=== PATIENT | female | born 1945 | race Caucasian/White ===

== ENCOUNTER 2019-03-25 17:41 | Inpatient (IN) | payer MEDICARE, OTHER ==
--- NOTE | 2019-03-25 19:29 | ER Document Report ---
ED Medical Screen (RME) - General Chief Complaint: Hip Pain Stated Complaint: NECK PAIN Time Seen by Provider: 03/25/19 19:14 Notes: Patient is a 73-year-old female who presents to emergency department with a chief complaint of fall. Patient reports she was ambulating down her hallway when she fell. Patient reports when she moves with a very rapid pace or turns abruptly she becomes weak on her legs. Patient reports she is unsure of how she fell but since then has had left hip pain. Patient reports she has been using her wheelchair more frequently as she is unable to ambulate due to the pain. Patient did have 800 mg of ibuprofen that was administered by her family member about 4 hours ago. Patient was sent here for further evaluation. Patient denies any other injury during the fall. Patient denies use of blood thinners. Patient was sent over here from [facility] internal medicine after receiving a left hip x-ray that showed a displaced left femoral head fracture. - Related Data Allergies/Adverse Reactions: lisinopril Allergy (Severe, Verified 03/25/19 19:05) Swelling of hands and/or feet Past Medical History - Social History Chew tobacco use (# tins/day): No Frequency of alcohol use: Occasional Drug Abuse: None Physical Exam - Vital signs Vitals: Temp Pulse Resp BP Pulse Ox 97.9 F 77 20 145/59 H 98 03/25/19 18:29 03/25/19 18:29 03/25/19 18:29 03/25/19 18:29 03/25/19 18:29 - General General appearance: Appears well, Alert Course - Re-evaluation Re-evalutation: 03/25/19 19:28 Patient no acute distress. We will order a left hip x-ray. I have greeted and performed a rapid initial assessment of this patient. A comprehensive ED assessment and evaluation of the patient, analysis of test results and completion of the medical decision making process will be conducted by additional ED providers. - Vital Signs Vital signs: Temp Pulse Resp BP Pulse Ox 97.9 F 77 20 145/59 H 98 03/25/19 19:06 03/25/19 18:29 03/25/19 19:06 03/25/19 18:29 03/25/19 19:06
[2019-03-25] MEDS ORDERED: MORPHINE SULFATE 10 MG/ML INJ IV ONE (20:02)
[2019-03-25] MEDS ORDERED: ONDANSETRON HCL INJ/PF 4 MG/2 ML SDV IV ONE (20:03)
--- NOTE | 2019-03-25 20:05 | RADIOLOGY REPORT (SQ) ---
EXAM DESCRIPTION: HIP LEFT AP/LATERAL COMPLETED DATE/TIME: 03/25/2019 7:54 pm REASON FOR STUDY: left hip pain, fall COMPARISON: None. NUMBER OF VIEWS: Two views. TECHNIQUE: AP pelvis and and oblique frontal view of the left hip. LIMITATIONS: None. FINDINGS: Left femoral neck fracture with 4 cm impaction and minimal lateral displacement. No other fracture identified. OTHER: No other significant finding. IMPRESSION: Left femoral neck fracture with 4 cm impaction and minimal lateral displacement. TECHNICAL DOCUMENTATION: JOB ID: [id number] [place]-72 2010 [employer]- All Rights Reserved Reading location - IP/workstation name: [email or web address]
[2019-03-25 20:49] LABS: ABSOLUTE EOSINOPHILS # (AUTO) 0.1 10^3/uL (0.0-0.6); ABSOLUTE LYMPHOCYTES (AUTO) 1.6 10^3/uL (0.5-4.7); ABSOLUTE MONOCYTES (AUTO) 1.3 10^3/uL (0.1-1.4); ABSOLUTE NEUT (AUTO) 10.8 10^3/uL (1.7-8.2); BASOPHILS % (AUTO) 0.3 % (0-2); EOSINOPHILS % (AUTO) 0.6 % (0-6); HEMATOCRIT 33.2 % (36.0-47.0); HEMOGLOBIN 11.3 g/dL (12.0-15.5); LYMPHOCYTES % (AUTO) 11.4 % (13-45); MEAN CORPUSCULAR HGB CONC 33.9 g/dL (32.0-36.0); MEAN CORPUSCULAR VOLUME 89 fl (80-97); MONOCYTES % (AUTO) 9.3 % (3-13); PLATELET COUNT 539 10^3/uL (150-450); RED BLOOD COUNT 3.76 10^6/uL (3.72-5.28); RED CELL DISTRIBUTION WIDTH 17.8 % (11.5-14.0); SEGMENTED NEUTROPHILS % (AUTO) 78.4 % (42-78); TOTAL CELLS COUNTED % (AUTO) 100 %; WHITE BLOOD COUNT 13.8 10^3/uL (4.0-10.5)
[2019-03-25 21:01] LABS: ANION GAP 13 (5-19); BLOOD UREA NITROGEN 8 mg/dL (7-20); CARBON DIOXIDE 28 mmol/L (22-30); CHLORIDE 83 mmol/L (98-107); GLUCOSE 89 mg/dL (75-110); POTASSIUM 4.4 mmol/L (3.6-5.0)
--- NOTE | 2019-03-25 21:01 | ER Document Report ---
ED General - General Chief Complaint: Hip Pain Stated Complaint: NECK PAIN Time Seen by Provider: 03/25/19 19:14 Primary Care Provider: SANTOS TURNER MD [Primary Care Provider] - Follow up as needed - [facility] Notes: Patient is a 73-year-old female with history of hypertension, not on any blood thinners, who presents complaining of left hip pain status post fall on March 09. Patient is accompanied by her spouse and daughter. Patient states that she lost her footing and has had left hip pain since then. states that she did not want to travel by EMS and he had no other way to get her here at that time. Patient states that she has been unable to ambulate and weight-bear because of the pain, and has been helping her maneuver around in a wheelchair and to use the bathroom. She is otherwise eating and drinking without difficulty. She is urinating normally and having normal bowel mo vements. Pain is to her hip and does not radiate. Denies any headache, fever, head injury, neck pain, changes in vision/speech/mentation/hearing, URI, sore throat, chest pain, palpitations, syncope, cough, shortness of breath, wheeze, dyspnea, abdominal pain, nausea/vomiting/diarrhea, urinary retention, dysuria, hematuria, loss of control of bowel or bladder, numbness/tingling, saddle anesthesia, muscle paralysis/weakness, or rash. - Related Data Allergies/Adverse Reactions: lisinopril Allergy (Severe, Verified 03/25/19 19:05) Swelling of hands and/or feet Past Medical History - Social History Smoking Status: Former Smoker Chew tobacco use (# tins/day): No Frequency of alcohol use: Occasional Drug Abuse: None Family History: Reviewed & Not Pertinent Patient has suicidal ideation: No Patient has homicidal ideation: No - Past Medical History Cardiac Medical History: Reports: Hx Hypertension Review of Systems - Review of Systems -: Yes All other systems reviewed and negative Physical Exam - Vital signs Vitals: Temp Pulse Resp BP Pulse Ox 97.9 F 77 20 145/59 H 98 03/25/19 18:29 03/25/19 18:29 03/25/19 18:29 03/25/19 18:29 03/25/19 18:29 - Notes Notes: PHYSICAL EXAMINATION: GENERAL: Well-appearing, well-nourished and in no acute distress. HEAD: Atraumatic, normocephalic. EYES: Pupils equal round and reactive to light, extraocular movements intact, sclera anicteric, conjunctiva are normal. ENT: Nares patent and without discharge. oropharynx clear without exudates. No tonsilar hypertrophy or erythema. Moist mucous membranes. NECK: Normal range of motion, supple without lymphadenopathy LUNGS: Breath sounds clear to auscultation bilaterally and equal. No wheezes rales or rhonchi. HEART: Regular rate and rhythm ABDOMEN: Soft, nontender, nondistended abdomen. No guarding, no rebound. Normal bowel sounds present. No CVA tenderness bilaterally. Musculoskeletal: Left hip: + tenderness to left hip to palp. LROM to passive/active. N/V intact distal. Ext's otherwise: FROM. N/V intact. Nontender. Extremities: No cyanosis, clubbing, or edema b/l. Peripheral pulses 2+. Capillary refill less than 3 seconds. NEUROLOGICAL: Cranial nerves grossly intact. Normal speech, normal gait. Normal sensory, motor exams otherwise PSYCH: Normal mood, normal affect. SKIN: Warm, Dry, normal turgor, no rashes or lesions noted. Course - Re-evaluation Re-evalutation: 03/25/19 21:[address] Rosario regarding the left hip fracture. He would like hospitalist admit and Ortho to consult. Pt to be NPO until further direction by Ortho/hospitalist otherwise. Call placed to hospitalist, waiting call back. 03/25/19 21:30 I did briefly go back and forth with who would be admitting, but Dr. Enriquez, hospitalist, will admit with surgical consult as of this time. Pre-op work up ordered. - Vital Signs Vital signs: Temp Pulse Resp BP Pulse Ox 98 F 72 16 152/78 H 98 03/25/19 20:44 03/25/19 20:44 03/25/19 20:44 03/25/19 20:44 03/25/19 20:44 - Laboratory Result Diagrams: 03/25/19 20:21 03/25/19 20:21 Laboratory results interpreted by me: 03/25/19 03/25/19 20:21 20:21 WBC 13.8 H Hgb 11.3 L Hct 33.2 L RDW 17.8 H Plt Count 539 H Lymph % (Auto) 11.4 L Absolute Neuts (auto) 10.8 H Seg Neutrophils % 78.4 H Sodium 124.2 L Chloride 83 L Discharge - Discharge Clinical Impression: Closed left hip fracture Qualifiers: Encounter type: initial encounter Qualified Code(s): S72.002A - Fracture of unspecified part of neck of left femur, initial encounter for closed fracture Condition: Stable Disposition: ADMITTED INPATIENT Admitting Provider: Mina (Hospitalist) Unit Admitted: Surgical Floor Referrals: SANTOS TURNER MD [Primary Care Provider] - Follow up as needed
[2019-03-25] MEDS ORDERED: NORMAL SALINE 1000 ML 1,000 ML IV ONE (21:06)
--- NOTE | 2019-03-25 21:37 | RADIOLOGY REPORT (SQ) ---
EXAM DESCRIPTION: [facility]: XR CHEST 1 VIEW CLINICAL HISTORY: 73 years Female, pre-op COMPARISON: None. FINDINGS: Lungs are clear, with no focal infiltrate, pneumothorax, or pleural effusion. Partially calcified breast implants are noted. There is minimal aortic calcification. Mediastinum is within normal limits for this positioning. Bony structures are unremarkable. IMPRESSION: 1. No acute pulmonary findings.
[2019-03-25] MEDS ORDERED: ONDANSETRON HCL INJ/PF 4 MG/2 ML SDV IV PRN (21:54)
[2019-03-25] MEDS ORDERED: DEXTROSE 5%-LACTATED RINGERS 1,000 ML IV PRN (21:54)
[2019-03-25] MEDS ORDERED: LEVALBUTEROL HCL NEB 0.63 MG/3 ML AMPUL NEB PRN (21:54)
[2019-03-25] MEDS ORDERED: NICOTINE 21 MG/24 HR PATCH.TD24 TD PRN (21:58)
[2019-03-25] MEDS ORDERED: HYDRALAZINE HCL INJ/PF 20 MG/1 ML SDV IV PRN (21:58)
[2019-03-25] MEDS ORDERED: ACETAMINOPHEN 650 MG SUPP.RECT PR PRN (21:58)
[2019-03-25] MEDS ORDERED: METOPROLOL TARTRATE PF/INJ 5 MG/5 ML SDV IV PRN (21:58)
[2019-03-25] MEDS ORDERED: MORPHINE SULFATE 10 MG/ML INJ IV PRN ×3 (21:58)
[2019-03-25 22:10] LABS: INTERNATIONAL RATION (INR) 0.88; PARTIAL THROMBOPLASTIN TIME 30.9 SEC (23.5-35.8); PROTHROMBIN TIME 11.9 SEC (11.4-15.4)
[2019-03-25] MEDS: FAMOTIDINE INJ/PF 20 MG/2 ML SDV IV SCH (23:00)
[2019-03-25] MEDS: HEPARIN SOD (PORCINE) 5,000 UNIT/ML 1 ML VIAL SUBCUT SCH (23:00)
--- NOTE | 2019-03-26 00:38 | EKG REPORT ---
SEVERITY:- NORMAL ECG - SINUS RHYTHM : Confirmed by: Julito Castaneda 26-Mar-2019 00:37:40
[2019-03-26 01:07] LABS: APPEARANCE,URINE CLOUDY; BILIRUBIN,URINE NEGATIVE (NEGATIVE); COLOR,URINE YELLOW; GLUCOSE, URINE NEGATIVE (NEGATIVE); KETONES,URINE NEGATIVE (NEGATIVE); LEUKOCYTE ESTERASE,URINE LARGE (NEGATIVE); NITRITE,URINE POSITIVE (NEGATIVE); PROTEIN,URINE NEGATIVE (NEGATIVE); URINE SPECIFIC GRAVITY 1.002; UROBILINOGEN,URINE NEGATIVE mg/dL (<2.0)
--- NOTE | 2019-03-26 05:11 | PDOC H&P ---
History of Present Illness Admission Date/PCP: 03/25/2019 21:37 SANTOS TURNER MD Patient complains of: Left hip pain History of Present Illness: JUSTIN FROST is a 73 year old female who presented to the emergency room with a 16-day history of left hip pain. The patient admits to a fall in the hallway of her home on March 09 of this year with a resultant painful left hip worsened by attempts at movement of the hip or weightbearing. She has been confined to bed and a wheelchair since the injury. The pain is a constant aching of moderate intensity without radiation that becomes a severe sharp grating pain with hip movement. She denies any associated or accompanying signs and symptoms. She denies prior similar episodes. She has not identified any additional aggravating or ameliorating factors for her left hip pain. She went to her primary care physician's office today and was found to have a fracture of her left hip and sent to the emergency room for further evaluation and treatment. In the emergency room x-ray revealed an impacted femoral neck fracture with moderate displacement. Patient was subsequently admitted to the hospital for further evaluation and treatment with Dr. Rosario insisting that the hospitalist service had to admit the patient and consult him for treatment. Past Medical History Cardiac Medical History: Reports: Hypertension Denies: Coronary Artery Disease, Myocardial Infarction Pulmonary Medical History: Denies: Asthma, Chronic Obstructive Pulmonary Disease (COPD) EENT Medical History: Denies: Cataracts, Ears - Hearing aids Neurological Medical History: Denies: Hemorrhagic CVA, Ischemic CVA, Seizures Endocrine Medical History: Denies: Diabetes Mellitus Type 1, Diabetes Mellitus Type 2, Hyperthyroidism, Hypothyroidism, Obesity Renal/ Medical History: Denies: Chronic Kidney Disease, Nephrolithiasis Malignancy Medical History: Reports: None GI Medical History: Denies: Cirrhosis, Crohn's Disease, Gastroesophageal Reflux Disease, Hepatitis, Peptic Ulcer Disease, Ulcerative Colitis Musculoskeltal Medical History: Denies: Arthritis, Gout Skin Medical History: Denies: Eczema, Psoriasis Psychiatric Medical History: Denies: Alcohol Dependency, Substance Abuse, Tobacco Dependency Traumatic Medical History: Reports: None Hematology: Denies: Anemia, Bleeding Tendencies Infectious Medical History: Reports: None Past Surgical History Past Surgical History: Reports: None Social History Information Source: Patient Lives with: Spouse/Significant other Smoking Status: Former Smoker Electronic Cigarette use?: No Frequency of Alcohol Use: None Hx Recreational Drug Use: No Drugs: None Hx Prescription Drug Abuse: No - Advance Directive Resuscitation Status: Full Code Surrogate healthcare decision maker:: Haim Frost Family History Family History: Hypertension. denies: CAD, DM, Malignancy Parental Family History Reviewed: Yes Children Family History Reviewed: No Sibling(s) Family History Reviewed.: Yes Medication/Allergy Home Medications: Amlodipine Besylate [Norvasc 5 mg Tablet] 5 mg PO DAILY 03/25/19 B Complex C 11/Calcium/Dha/Q10 [Brain Rpazx-Upj-Ov Q10 Tablet] 1 each PO DAILY 03/25/19 Candesartan Cilexetil [Atacand 32 mg Tablet] 32 mg PO DAILY 03/25/19 Multivit with Iron,Minerals [Spectravite Senior] 1 tab PO DAILY 03/25/19 Nitrofurantoin Monohyd/M-Cryst [Macrobid 100 mg Capsule] 100 mg PO BID 03/25/19 Sertraline HCl 50 mg PO DAILY 03/25/19 Allergies/Adverse Reactions: lisinopril Allergy (Severe, Verified 03/25/19 19:05) Swelling of hands and/or feet Review of Systems Constitutional: ABSENT: chills, fever(s) Eyes: ABSENT: visual disturbances, other - Eye pain Ears: ABSENT: hearing changes, other - Ear pain Nose, Mouth, and Throat: ABSENT: headache(s), mouth pain, sore throat Cardiovascular: ABSENT: chest pain, palpitations Respiratory: ABSENT: cough, dyspnea Gastrointestinal: ABSENT: abdominal pain, constipation, diarrhea, nausea, vomiting Genitourinary: ABSENT: dysuria, hematuria Musculoskeletal: PRESENT: as per HPI, other - Left hip pain. ABSENT: back pain, joint swelling, muscle weakness Integumentary: ABSENT: pruritus, rash Neurological: ABSENT: confusion, convulsions, focal weakness, memory loss, synco pe Psychiatric: ABSENT: anxiety, depression Endocrine: ABSENT: cold intolerance, heat intolerance Hematologic/Lymphatic: ABSENT: easy bleeding, easy bruising Allergic/Immunologic: ABSENT: seasonal rhinorrhea Physical Exam Vital Signs: Temp Pulse Resp BP Pulse Ox 98 F 72 16 152/78 H 98 03/25/19 20:44 03/25/19 20:44 03/25/19 20:44 03/25/19 20:44 03/25/19 20:44 Intake & Output 03/23/19 03/24/19 03/25/19 23:59 23:59 23:59 Weight 59.874 kg General appearance: PRESENT: no acute distress, cooperative Head exam: PRESENT: atraumatic, normocephalic Eye exam: PRESENT: conjunctiva pink. ABSENT: conjunctival injection, scleral icterus Ear exam: PRESENT: normal external ear exam. ABSENT: bleeding, drainage Mouth exam: PRESENT: dry mucosa, neck supple Neck exam: ABSENT: thyromegaly, tracheal deviation Respiratory exam: PRESENT: clear to auscultation damien, symmetrical, unlabored Cardiovascular exam: PRESENT: RRR. ABSENT: clicks, gallop, rubs Pulses: PRESENT: normal radial pulses, normal dorsalis pedis pul Vascular exam: PRESENT: normal capillary refill. ABSENT: pallor GI/Abdominal exam: PRESENT: normal bowel sounds, soft Rectal exam: PRESENT: deferred Extremities exam: PRESENT: tenderness - Tenderness to palpation or movement of the left hip. ABSENT: joint swelling, pedal edema Musculoskeletal exam: PRESENT: deformity - Left lower extremity shortened and externally rotated, tenderness - Tenderness to palpation or motion of the left h ip. ABSENT: ambulatory Neurological exam: PRESENT: alert, oriented to person, oriented to place, oriented to time, oriented to situation, CN II-XII grossly intact. ABSENT: m otor sensory deficit Psychiatric exam: PRESENT: appropriate affect, normal mood Skin exam: PRESENT: dry, intact, warm. ABSENT: jaundice, rash, urticaria Results Laboratory Results: 03/25/19 20:21 03/25/19 20:21 03/25/19 03/25/19 20:21 20:21 WBC 13.8 H RBC 3.76 Hgb 11.3 L Hct 33.2 L MCV 89 MCH 30.0 MCHC 33.9 RDW 17.8 H Plt Count 539 H Seg Neutrophils % 78.4 H Sodium 124.2 L Potassium 4.4 Chloride 83 L Carbon Dioxide 28 Anion Gap 13 BUN 8 Creatinine 0.65 Est GFR ( Amer) > 60 Glucose 89 Calcium 10.0 Impressions: Hip X-Ray 03/25/19 19:26 IMPRESSION: Left femoral neck fracture with 4 cm impaction and minimal lateral displacement. Assessment and Plan - Diagnosis (1) Acute pain of left hip Is this a current diagnosis for this admission?: Yes (2) Closed displaced fracture of left femoral neck Is this a current diagnosis for this admission?: Yes (3) Hyponatremia Is this a current diagnosis for this admission?: Yes (4) Leukocytosis Qualifiers: Leukocytosis type: unspecified Qualified Code(s): D72.829 - Elevated white blood cell count, unspecified Is this a current diagnosis for this admission?: Yes (5) Essential hypertension Is this a current diagnosis for this admission?: Yes - Plan Summary Summary: Patient was admitted to the hospitalist service on the surgical floor where she will receive routine supportive and symptomatic cares. Her pain will be treated with morphine sulfate 2 to 4 mg IV every 2 hours as needed for control of pain using a sliding scale for dosing. Surgical consultation will be obtained with Dr. Ryder Rosario. Patient will be treated with IV fluids utilizing D5 lactated Ringer's while she will be maintained n.p.o. Her blood pressure be controlled with IV hydralazine and/or metoprolol as required. - Time Time Spent with patient: 25-34 minutes Medications reviewed and adjusted accordingly: Yes Anticipated discharge: Home - Inpatient Certification Based on my medical assessment, after consideration of the patient's comorbidities, presenting symptoms, or acuity I expect that the services needed warrant INPATIENT care.: Yes I certify that my determination is in accordance with my understanding of Medicare's requirements for reasonable and necessary INPATIENT services [42 CFR 412.3e].: Yes Medical Necessity: Need Close Monitoring Due to Risk of Patient Decompensation, Need For IV Fluids, Need for Pain Control, Need for Surgery
[2019-03-26] MEDS: HEPARIN SOD (PORCINE) 5,000 UNIT/ML 1 ML VIAL SUBCUT SCH ×3 (05:19→22:01)
[2019-03-26 06:06] LABS: HEMATOCRIT 30.4 % (36.0-47.0); HEMOGLOBIN 10.3 g/dL (12.0-15.5); MEAN CORPUSCULAR HGB CONC 33.9 g/dL (32.0-36.0); MEAN CORPUSCULAR VOLUME 89 fl (80-97); PLATELET COUNT 515 10^3/uL (150-450); RED BLOOD COUNT 3.43 10^6/uL (3.72-5.28); RED CELL DISTRIBUTION WIDTH 17.4 % (11.5-14.0); WHITE BLOOD COUNT 12.9 10^3/uL (4.0-10.5)
[2019-03-26 06:31] LABS: ANION GAP 11 (5-19); BLOOD UREA NITROGEN 7 mg/dL (7-20); CALCIUM 9.2 mg/dL (8.4-10.2); CARBON DIOXIDE 30 mmol/L (22-30); CHLORIDE 91 mmol/L (98-107); GLUCOSE 97 mg/dL (75-110); POTASSIUM 3.9 mmol/L (3.6-5.0)
--- NOTE | 2019-03-26 08:19 | PDOC CONSULTATION ---
Consultation Consult Date: 03/26/19 Provider Consulted: CADY ESCOBAR History of Present Illness Admission Date/PCP: 03/25/19 21:45 SANTOS TURNER MD Patient complains of: Left hip pain History of Present Illness: JUSTIN FROST is a 73 year old female who sustained a fall onto her left side approximately 2 weeks ago. Patient did not present to the emergency room due to transportation issues and desire to avoid EMS. Patient states she has been attempting ambulation with a walker with difficulty. Concerned about her lower extremity being shortened with tightness. Notes pain worse with motion. Denies numbness or tingling. Denies headache dizziness or loss of consciousness. Pain 1/5. Past Medical History Cardiac Medical History: Reports: Hypertension Denies: Coronary Artery Disease, Myocardial Infarction Pulmonary Medical History: Denies: Asthma, Chronic Obstructive Pulmonary Disease (COPD) EENT Medical History: Denies: Cataracts, Ears - Hearing aids Neurological Medical History: Denies: Hemorrhagic CVA, Ischemic CVA, Seizures Endocrine Medical History: Denies: Diabetes Mellitus Type 1, Diabetes Mellitus Type 2, Hyperthyroidism, Hypothyroidism, Obesity Renal/ Medical History: Denies: Chronic Kidney Disease, Nephrolithiasis Malignancy Medical History: Reports: None GI Medical History: Denies: Cirrhosis, Crohn's Disease, Gastroesophageal Reflux Disease, Hepatitis, Peptic Ulcer Disease, Ulcerative Colitis Musculoskeltal Medical History: Denies: Arthritis, Gout Skin Medical History: Denies: Eczema, Psoriasis Psychiatric Medical History: Denies: Alcohol Dependency, Depression, Substance Abuse, Tobacco Dependency Traumatic Medical History: Reports: None Hematology: Denies: Anemia, Bleeding Tendencies Infectious Medical History: Reports: None Past Surgical History Past Surgical History: Reports: None Social History Lives with: Spouse/Significant other Smoking Status: Former Smoker Electronic Cigarette use?: No Frequency of Alcohol Use: None Hx Recreational Drug Use: No Drugs: None Hx Prescription Drug Abuse: No - Advance Directive Resuscitation Status: Full Code Family History Family History: Hypertension. denies: CAD, DM, Malignancy Parental Family History Reviewed: No Children Family History Reviewed: No Sibling(s) Family History Reviewed.: No Medication/Allergy Home Medications: Amlodipine Besylate [Norvasc 5 mg Tablet] 5 mg PO DAILY 03/25/19 B Complex C 11/Calcium/Dha/Q10 [Brain Idcny-Ljj-Rx Q10 Tablet] 1 each PO DAILY 03/25/19 Candesartan Cilexetil [Atacand 32 mg Tablet] 32 mg PO DAILY 03/25/19 Multivit with Iron,Minerals [Spectravite Senior] 1 tab PO DAILY 03/25/19 Nitrofurantoin Monohyd/M-Cryst [Macrobid 100 mg Capsule] 100 mg PO BID 03/25/19 Sertraline HCl 50 mg PO DAILY 03/25/19 Allergies/Adverse Reactions: lisinopril Allergy (Severe, Verified 03/25/19 19:05) Swelling of hands and/or feet Review of Systems Constitutional: ABSENT: chills, fever(s), headache(s), weight gain, weight loss Eyes: ABSENT: visual disturbances Ears: ABSENT: hearing changes Cardiovascular: ABSENT: chest pain, dyspnea on exertion, edema, orthropnea, palpitations Respiratory: ABSENT: cough, hemoptysis Gastrointestinal: ABSENT: abdominal pain, constipation, diarrhea, hematemesis, hematochezia, nausea, vomiting Genitourinary: PRESENT: other - Polyuria. ABSENT: dysuria, hematuria Musculoskeletal: PRESENT: as per HPI Integumentary: ABSENT: rash, wounds Neurological: ABSENT: abnormal gait, abnormal speech, confusion, dizziness, focal weakness, syncope Psychiatric: ABSENT: anxiety, depression, homidical ideation, suicidal ideation Endocrine: ABSENT: cold intolerance, heat intolerance, menstrual abnormalities, polydipsia, polyuria Hematologic/Lymphatic: ABSENT: easy bleeding, easy bruising, lymphadenopathy Physical Exam Vital Signs: Temp Pulse Resp BP Pulse Ox 98.0 F 69 16 128/59 H 93 03/26/19 07:33 03/26/19 07:33 03/26/19 07:33 03/26/19 07:33 03/26/19 07:33 Intake & Output 03/25/19 03/26/19 03/27/19 06:59 06:59 06:59 Intake Total 1000 Balance 1000 Weight 51.4 kg General appearance: PRESENT: no acute distress, well-developed, well-nourished Head exam: PRESENT: atraumatic, normocephalic Eye exam: PRESENT: conjunctiva pink, EOMI, PERRLA. ABSENT: scleral icterus Ear exam: PRESENT: normal external ear exam Mouth exam: PRESENT: moist, tongue midline Neck exam: PRESENT: full ROM. ABSENT: carotid bruit, JVD, lymphadenopathy, thyromegaly Respiratory exam: PRESENT: unlabored Cardiovascular exam: PRESENT: RRR. ABSENT: diastolic murmur, rubs, systolic murmur Pulses: PRESENT: normal dorsalis pedis pul, +2 pedal pulses bilateral Vascular exam: PRESENT: normal capillary refill GI/Abdominal exam: PRESENT: normal bowel sounds, soft. ABSENT: distended, guarding, mass, organolmegaly, rebound, tenderness Rectal exam: PRESENT: deferred Musculoskeletal exam: PRESENT: other - Left hip: Short internal rotated left hip with pain upon range of motion. Notable limb length discrepancy. No significant swelling. Intact plantarflexion/dorsiflexion. No sensory deficits. Dorsalis pedis pulse 2+. No calf tenderness. Neurological exam: PRESENT: alert, awake, oriented to person, oriented to place, oriented to time, oriented to situation, CN II-XII grossly intact. ABSENT: motor sensory deficit Psychiatric exam: PRESENT: appropriate affect, normal mood. ABSENT: homicidal ideation, suicidal ideation Skin exam: PRESENT: dry, intact, warm. ABSENT: cyanosis, rash Results Laboratory Results: 03/26/19 04:50 03/26/19 04:50 03/25/19 03/25/19 03/26/19 20:21 20:21 00:39 WBC 13.8 H RBC 3.76 Hgb 11.3 L Hct 33.2 L MCV 89 MCH 30.0 MCHC 33.9 RDW 17.8 H Plt Count 539 H Seg Neutrophils % 78.4 H Sodium 124.2 L Potassium 4.4 Chloride 83 L Carbon Dioxide 28 Anion Gap 13 BUN 8 Creatinine 0.65 Est GFR ( Amer) > 60 Glucose 89 Calcium 10.0 Magnesium Urine Color YELLOW Urine Appearance CLOUDY Urine pH 6.0 Ur Specific [place] 1.002 Urine Protein NEGATIVE Urine Glucose (UA) NEGATIVE Urine Ketones NEGATIVE Urine Blood SMALL H Urine Nitrite POSITIVE H Ur Leukocyte Esterase LARGE H Urine WBC (Auto) 40 Urine RBC (Auto) 1 03/26/19 03/26/19 04:50 04:50 WBC 12.9 H RBC 3.43 L Hgb 10.3 L Hct 30.4 L MCV 89 MCH 30.0 MCHC 33.9 RDW 17.4 H Plt Count 515 H Seg Neutrophils % Sodium 131.5 L Potassium 3.9 Chloride 91 L Carbon Dioxide 30 Anion Gap 11 BUN 7 Creatinine 0.59 Est GFR ( Amer) > 60 Glucose 97 Calcium 9.2 Magnesium 2.0 Urine Color Urine Appearance Urine pH Ur Specific [place] Urine Protein Urine Glucose (UA) Urine Ketones Urine Blood Urine Nitrite Ur Leukocyte Esterase Urine WBC (Auto) Urine RBC (Auto) Impressions: Hip X-Ray 03/25/19 19:26 IMPRESSION: Left femoral neck fracture with 4 cm impaction and minimal lateral displacement. Chest X-Ray 03/25/19 21:06 IMPRESSION: 1. No acute pulmonary findings. Status: Image reviewed by me - I have reviewed patient's radiographs which are consistent with chronic left displaced femoral neck fracture Assessment & Plan - Diagnosis (1) Closed displaced fracture of left femoral neck Is this a current diagnosis for this admission?: Yes Plan: Patient has evidence of displaced femoral neck fracture. There is no sign or sy mptoms to suggest underlying pathologic process. Today we discussed treatment options including operative versus nonoperative intervention after discussing risks and benefits decision was made to proceed with operative treatment which includes left hip hemiarthroplasty possible total. Given patient's positive UTI that has not been treated we will start her on IV antibiotics for the next 24 hours prior to proceeding with operative intervention. Current plan is to proceed with left hip hemiarthroplasty versus total on 03/27/[address] Cisneros. Surgical risks were explained including anesthetic complications, excessive bleeding, infection, injury to surrounding nerves, vessels and tendons, bruising, healing difficulties, scar formation, hardware complication, posttraumatic arthritis.
[2019-03-26] MEDS: FAMOTIDINE INJ/PF 20 MG/2 ML SDV IV SCH ×2 (09:09→22:01)
[2019-03-26] MEDS: SULFAMETHOXAZOLE/TRIMETHOPRIM 800-160 MG TABLET PO SCH ×2 (09:09→22:01)
[2019-03-26] MEDS ORDERED: SULFAMETHOXAZOLE/TRIMETHOPRIM 800-160 MG TABLET PO SCH (10:00)
[2019-03-26] MEDS ORDERED: CIPROFLOXACIN 400 MG/D5W RTU 400 MG/200 ML RTUPB IV SCH (10:00)
[2019-03-26] MEDS ORDERED: TRAMADOL HCL 50 MG TABLET PO PRN (13:19)
--- NOTE | 2019-03-26 13:28 | PDOC PROGRESS REPORT ---
Subjective Progress Note for:: 03/26/19 Subjective:: Patient complains of mild pain in left hip. Otherwise feels well. Denies any shortness of breath or chest pain. States that she did not feel like she was dehydrated while at home. Reason For Visit: LEFT FEMORAL NECK FRACTURE Physical Exam Vital Signs: Temp Pulse Resp BP Pulse Ox 97.2 F 63 16 125/52 L 94 03/26/19 11:12 03/26/19 11:12 03/26/19 11:12 03/26/19 11:12 03/26/19 11:12 Intake & Output 03/25/19 03/26/19 03/27/19 06:59 06:59 06:59 Intake Total 1000 Balance 1000 Weight 51.4 kg General appearance: PRESENT: no acute distress, cooperative, thin Neck exam: ABSENT: JVD Respiratory exam: PRESENT: clear to auscultation damien, tachypnea, wheezes. ABSENT: unlabored Cardiovascular exam: PRESENT: RRR, +S1, +S2. ABSENT: tachycardia GI/Abdominal exam: PRESENT: normal bowel sounds, soft. ABSENT: rigid, tenderness Extremities exam: PRESENT: other - Tenderness in left hip region with bulging and mild swelling and mild ecchymosis. No warmth or significant erythema in the area. Neurological exam: PRESENT: alert, awake Results Laboratory Results: 03/26/19 04:50 03/26/19 04:50 03/25/19 03/25/19 03/26/19 20:21 20:21 00:39 WBC 13.8 H RBC 3.76 Hgb 11.3 L Hct 33.2 L MCV 89 MCH 30.0 MCHC 33.9 RDW 17.8 H Plt Count 539 H Seg Neutrophils % 78.4 H Sodium 124.2 L Potassium 4.4 Chloride 83 L Carbon Dioxide 28 Anion Gap 13 BUN 8 Creatinine 0.65 Est GFR ( Amer) > 60 Glucose 89 Calcium 10.0 Magnesium Urine Color YELLOW Urine Appearance CLOUDY Urine pH 6.0 Ur Specific [place] 1.002 Urine Protein NEGATIVE Urine Glucose (UA) NEGATIVE Urine Ketones NEGATIVE Urine Blood SMALL H Urine Nitrite POSITIVE H Ur Leukocyte Esterase LARGE H Urine WBC (Auto) 40 Urine RBC (Auto) 1 03/26/19 03/26/19 04:50 04:50 WBC 12.9 H RBC 3.43 L Hgb 10.3 L Hct 30.4 L MCV 89 MCH 30.0 MCHC 33.9 RDW 17.4 H Plt Count 515 H Seg Neutrophils % Sodium 131.5 L Potassium 3.9 Chloride 91 L Carbon Dioxide 30 Anion Gap 11 BUN 7 Creatinine 0.59 Est GFR ( Amer) > 60 Glucose 97 Calcium 9.2 Magnesium 2.0 Urine Color Urine Appearance Urine pH Ur Specific [place] Urine Protein Urine Glucose (UA) Urine Ketones Urine Blood Urine Nitrite Ur Leukocyte Esterase Urine WBC (Auto) Urine RBC (Auto) Impressions: Hip X-Ray 03/25/19 19:26 IMPRESSION: Left femoral neck fracture with 4 cm impaction and minimal lateral displacement. Chest X-Ray 03/25/19 21:06 IMPRESSION: 1. No acute pulmonary findings. Assessment and Plan - Diagnosis (1) Closed displaced fracture of left femoral neck Is this a current diagnosis for this admission?: Yes Plan: Hip x-ray image reviewed by me patient has been seen by orthopedics and scheduled for surgery tomorrow. Pain control with Tylenol and tramadol as needed (2) Essential hypertension Is this a current diagnosis for this admission?: Yes Plan: I will resume her amlodipine 5 mg daily. blood pressure seems well controlled (3) Hyponatremia Is this a current diagnosis for this admission?: Yes Plan: Patient's hyponatremia looks better today sodium is 131. To avoid overcorrection, I will recheck BMP and slowdown IV fluid rate if needed. Goal correction rate of less than 8 to 10 mEq per 24 hours (4) Leukocytosis Qualifiers: Leukocytosis type: unspecified Qualified Code(s): D72.829 - Elevated white blood cell count, unspecified Is this a current diagnosis for this admission?: Yes (5) UTI (urinary tract infection), bacterial Is this a current diagnosis for this admission?: Yes Plan: Patient seems to have been receiving treatment for UTI in the outpatient. Urinalysis is positive. I will continue on Bactrim for 4 days. - Time Time Spent with patient: 15-24 minutes
[2019-03-26] MEDS: AMLODIPINE BESYLATE 5 MG TABLET PO SCH (15:50)
[2019-03-26 16:29] LABS: ANION GAP 10 (5-19); CALCIUM 9.1 mg/dL (8.4-10.2); CARBON DIOXIDE 28 mmol/L (22-30); CHLORIDE 89 mmol/L (98-107); GLUCOSE 111 mg/dL (75-110); POTASSIUM 4.1 mmol/L (3.6-5.0)
[2019-03-26 16:30] LABS: BLOOD UREA NITROGEN 11 mg/dL (7-20)
[2019-03-27] MEDS: HEPARIN SOD (PORCINE) 5,000 UNIT/ML 1 ML VIAL SUBCUT SCH ×3 (05:30→22:51)
[2019-03-27 07:08] LABS: HEMATOCRIT 30.4 % (36.0-47.0); HEMOGLOBIN 10.3 g/dL (12.0-15.5); MEAN CORPUSCULAR HEMOGLOBIN 30.2 pg (27.0-33.4); MEAN CORPUSCULAR HGB CONC 33.8 g/dL (32.0-36.0); MEAN CORPUSCULAR VOLUME 89 fl (80-97); PLATELET COUNT 477 10^3/uL (150-450); RED CELL DISTRIBUTION WIDTH 17.5 % (11.5-14.0); WHITE BLOOD COUNT 11.5 10^3/uL (4.0-10.5)
[2019-03-27] MEDS ORDERED: VANCOMYCIN HCL 1,000 MG in DEXTROSE 5%-WATER 250 ML IV PRN (07:14)
[2019-03-27] MEDS ORDERED: RINGERS SOLUTION,LACTATED 1,000 ML IV PRN ×2 (07:15→18:33)
[2019-03-27] MEDS ORDERED: TRANEXAMIC ACID INJ/PF 1,000 MG/10 ML SDV IV PRN (07:15)
[2019-03-27 07:30] LABS: ANION GAP 7 (5-19); BLOOD UREA NITROGEN 6 mg/dL (7-20); CALCIUM 9.1 mg/dL (8.4-10.2); CARBON DIOXIDE 30 mmol/L (22-30); CHLORIDE 91 mmol/L (98-107); GLUCOSE 96 mg/dL (75-110); POTASSIUM 3.9 mmol/L (3.6-5.0)
[2019-03-27] MEDS: AMLODIPINE BESYLATE 5 MG TABLET PO SCH (10:27)
[2019-03-27] MEDS ORDERED: MIDAZOLAM 2 MG/2 ML INJ ONE (17:08)
[2019-03-27] MEDS ORDERED: FENTANYL CITRATE INJ/PF 100 MCG/2 ML AMPUL ONE (17:08)
[2019-03-27] MEDS ORDERED: LIDOCAINE 2% INJ-PF (20 MG/ML) 10 ML AMPUL ONE (17:08)
[2019-03-27] MEDS ORDERED: PROPOFOL INJ 200 MG/20 ML VIAL IV ONE (17:09)
[2019-03-27] MEDS ORDERED: VANCOMYCIN HCL INJ 500 MG VIAL ONE (17:13)
[2019-03-27] MEDS: SULFAMETHOXAZOLE/TRIMETHOPRIM 800-160 MG TABLET PO SCH ×2 (17:16→22:52)
[2019-03-27] MEDS: SERTRALINE HCL 50 MG TABLET PO SCH (17:16)
[2019-03-27] MEDS: FAMOTIDINE INJ/PF 20 MG/2 ML SDV IV SCH ×2 (17:16→22:53)
[2019-03-27] MEDS ORDERED: BUPIVACAINE INJ/PF LIPOSOME/PF 266 MG/20 ML SDV ONE (17:17)
[2019-03-27] MEDS ORDERED: TRANEXAMIC ACID INJ/PF 1,000 MG/10 ML SDV ONE ×2 (17:44→19:44)
[2019-03-27] MEDS ORDERED: FENTANYL CITRATE INJ/PF 100 MCG/2 ML AMPUL IV PRN ×3 (18:14)
[2019-03-27] MEDS ORDERED: OXYCODONE-ACETAMINOPHEN 5-325 MG TABLET PO PRN ×2 (18:14)
[2019-03-27] MEDS ORDERED: MEPERIDINE HCL/PF INJ 25 MG/1 ML DISP.SYRIN IV PRN (18:14)
[2019-03-27] MEDS ORDERED: PROMETHAZINE HCL INJ 25 MG/1 ML VIAL IV PRN ×2 (18:14)
[2019-03-27] MEDS ORDERED: ONDANSETRON HCL INJ/PF 4 MG/2 ML SDV IV PRN ×2 (18:14→18:33)
[2019-03-27] MEDS ORDERED: DIPHENHYDRAMINE HCL 50 MG/ML VIAL IV PRN (18:14)
[2019-03-27] MEDS ORDERED: BUPIVACAINE INJ/PF LIPOSOME/PF 266 MG/20 ML SDV INJ ONE (18:15)
--- NOTE | 2019-03-27 18:25 | PDOC PROGRESS REPORT ---
Subjective Progress Note for:: 03/27/19 Subjective:: Patient is feeling well. Mild pain in the hip. Reason For Visit: LEFT FEMORAL NECK FRACTURE Physical Exam Vital Signs: Temp Pulse Resp BP Pulse Ox 98 F 68 16 132/62 H 96 03/27/19 15:39 03/27/19 15:39 03/27/19 15:39 03/27/19 15:39 03/27/19 15:39 Intake & Output 03/26/19 03/27/19 03/28/19 06:59 06:59 06:59 Intake Total 1000 2696 Balance 1000 2696 Weight 51.4 kg 53.5 kg General appearance: PRESENT: no acute distress, cooperative Respiratory exam: PRESENT: clear to auscultation damien Cardiovascular exam: PRESENT: +S1, +S2 Neurological exam: PRESENT: alert, awake, oriented to person, oriented to place, oriented to time Results Laboratory Results: 03/27/19 06:12 03/27/19 06:12 03/27/19 03/27/19 06:12 06:12 WBC 11.5 H RBC 3.40 L Hgb 10.3 L Hct 30.4 L MCV 89 MCH 30.2 MCHC 33.8 RDW 17.5 H Plt Count 477 H Sodium 128.2 L Potassium 3.9 Chloride 91 L Carbon Dioxide 30 Anion Gap 7 BUN 6 L Creatinine 0.51 L Est GFR ( Amer) > 60 Glucose 96 Calcium 9.1 Impressions: Hip X-Ray 03/25/19 19:26 IMPRESSION: Left femoral neck fracture with 4 cm impaction and minimal lateral displacement. Chest X-Ray 03/25/19 21:06 IMPRESSION: 1. No acute pulmonary findings. Assessment and Plan - Diagnosis (1) Closed displaced fracture of left femoral neck Is this a current diagnosis for this admission?: Yes Plan: Hip x-ray image reviewed by me patient has been seen by orthopedics and scheduled for surgery this evening. Pain control with Tylenol and tramadol as needed (2) Essential hypertension Is this a current diagnosis for this admission?: Yes Plan: amlodipine 5 mg daily. blood pressure seems well controlled (3) Hyponatremia Is this a current diagnosis for this admission?: Yes Plan: Back down to 128 Start on normal saline continuous infusions (4) Leukocytosis Qualifiers: Leukocytosis type: unspecified Qualified Code(s): D72.829 - Elevated white blood cell count, unspecified Is this a current diagnosis for this admission?: Yes (5) UTI (urinary tract infection), bacterial Is this a current diagnosis for this admission?: Yes Plan: Patient seems to have been receiving treatment for UTI in the outpatient. Urinalysis is positive. I will continue on Bactrim for 3 more days. - Time Time Spent with patient: Less than 15 minutes
[2019-03-27] MEDS ORDERED: ACETAMINOPHEN 325 MG TABLET PO PRN (18:33)
[2019-03-27] MEDS ORDERED: ONDANSETRON 4 MG TAB.RAPDIS PO PRN (18:33)
[2019-03-27] MEDS ORDERED: MAG HYDROX/AL HYDROX/SIMETH SUSP 30 ML UDCUP PO PRN (18:33)
--- NOTE | 2019-03-27 19:54 | Operative Report ---
Operative Report DATE OF SURGERY: 03/27/19 PREOPERATIVE DIAGNOSIS: Left subtrochanteric femur fracture OPERATION: Open reduction internal fixation left subtrochanteric femur fracture SURGEON: JENIFFER XIAO ANESTHESIA: Spinal ESTIMATED BLOOD LOSS: 50 PROCEDURE: Implants used: Ashkan gamma 3 nail 11 x 125 degrees x 380 mm, 90 mm proximal interlock The case starts with the patient on the fracture table. Because of severe flexion contractions of the knee and the hip a decision is made to discontinue this approach and the patient is transferred to a regular operating room bed in a lateral position on a beanbag. Subsequent left lower extremities prepped and draped in a sterile fashion. A pin is placed percutaneously down the femur. A combined reamer was then used to fashion a cortical opening. A ball-tipped guide rods placed down the femur and the length is measured to be 380 mm. Subsequently a Ashkan gamma 3 nail was advanced over the ball-tipped guide alexander to the appropriate depth. A 90 mm proximal interlock is placed using AP and frog-leg laterals for radiographic guidance. A decision was made not to place a distal interlock. The wounds were irrigated and closure was interrupted Vicryl followed by naina. A sterile compressive dressing was applied and patient's return to PACU in satisfactory vision.
[2019-03-27] MEDS ORDERED: TRANEXAMIC ACID INJ/PF 1,000 MG/10 ML SDV IV ONE (20:00)
--- NOTE | 2019-03-27 20:23 | RADIOLOGY REPORT (SQ) ---
EXAM: X-ray pelvis 1-2 views CLINICAL DATA: 73-year-old female postop TECHNICAL DATA: A single AP x-ray view of the pelvis was performed on 03/27/2019 at 7:17 PM. COMPARISONS: None FINDINGS: There is a total left hip arthroplasty which is grossly satisfactory in position and alignment on this single portable projection. The right hip joint is intact and the proximal right femur is unremarkable. No definite acute osseous abnormality is identified. There are mild degenerative changes of the sacroiliac joints and pubic symphysis. No pathologic lytic or sclerotic bone lesions are seen. Bone mineralization is normal. No focal soft tissue abnormalities are identified. IMPRESSION: 1. Total left hip arthroplasty without definite hardware failure or acute osseous abnormality. 2. Mild degenerative changes of the pelvis.
[2019-03-27] MEDS: IBUPROFEN 800 MG in NORMAL SALINE 250 ML IV SCH (22:51)
[2019-03-27] MEDS: OXYCODONE HCL SR 10 MG TABLET PO SCH (22:51)
[2019-03-27] MEDS: NORMAL SALINE 1000 ML 1,000 ML IV PRN (22:53)
[2019-03-28] MEDS: HEPARIN SOD (PORCINE) 5,000 UNIT/ML 1 ML VIAL SUBCUT SCH ×3 (05:17→22:16)
[2019-03-28] MEDS: IBUPROFEN 800 MG in NORMAL SALINE 250 ML IV SCH ×3 (05:21→22:15)
[2019-03-28] MEDS ORDERED: PANTOPRAZOLE SODIUM 40 MG TABLET.DR PO SCH (06:00)
[2019-03-28] MEDS ORDERED: VANCOMYCIN HCL 1,000 MG in DEXTROSE 5%-WATER 250 ML IV ONE (06:30)
[2019-03-28 06:50] LABS: HEMATOCRIT 29.4 % (36.0-47.0); MEAN CORPUSCULAR HEMOGLOBIN 30.3 pg (27.0-33.4); MEAN CORPUSCULAR HGB CONC 34.1 g/dL (32.0-36.0); MEAN CORPUSCULAR VOLUME 89 fl (80-97); PLATELET COUNT 395 10^3/uL (150-450); RED CELL DISTRIBUTION WIDTH 17.3 % (11.5-14.0); WHITE BLOOD COUNT 10.9 10^3/uL (4.0-10.5)
--- NOTE | 2019-03-28 06:58 | PDOC PROGRESS REPORT ---
Subjective Progress Note for:: 03/28/19 Reason For Visit: LEFT FEMORAL NECK FRACTURE 73-year-old white female now postop day 1 status post left hip arthroplasty for a displaced left femoral neck fracture. Patient with an uneventful postoperative course Physical Exam Vital Signs: Temp Pulse Resp BP Pulse Ox 36.8 C 80 20 128/50 H 98 03/28/19 00:57 03/28/19 00:57 03/28/19 00:57 03/28/19 00:57 03/28/19 00:57 Intake & Output 03/26/19 03/27/19 03/28/19 06:59 06:59 06:59 Intake Total 1000 2696 1800 Output Total 100 Balance 1000 2696 1700 Weight 51.4 kg 53.5 kg General appearance: PRESENT: no acute distress Head exam: PRESENT: normocephalic Respiratory exam: PRESENT: unlabored Cardiovascular exam: PRESENT: RRR GI/Abdominal exam: PRESENT: soft Rectal exam: PRESENT: deferred Extremities exam: PRESENT: other - Left hip dressing clean dry and intact. Leg lengths are equal. Distal neurovascular examination is intact. Neurological exam: PRESENT: alert, awake, oriented to person, oriented to place, oriented to time, oriented to situation. ABSENT: motor sensory deficit Skin exam: PRESENT: abrasion Results Laboratory Results: 03/28/19 06:40 03/27/19 03/27/19 03/28/19 06:12 06:12 06:40 WBC 11.5 H 10.9 H RBC 3.40 L 3.30 L Hgb 10.3 L 10.0 L Hct 30.4 L 29.4 L MCV 89 89 MCH 30.2 30.3 MCHC 33.8 34.1 RDW 17.5 H 17.3 H Plt Count 477 H 395 Sodium 128.2 L Potassium 3.9 Chloride 91 L Carbon Dioxide 30 Anion Gap 7 BUN 6 L Creatinine 0.51 L Est GFR ( Amer) > 60 Glucose 96 Calcium 9.1 Impressions: Hip X-Ray 03/25/19 19:26 IMPRESSION: Left femoral neck fracture with 4 cm impaction and minimal lateral displacement. Chest X-Ray 03/25/19 21:06 IMPRESSION: 1. No acute pulmonary findings. Pelvis X-Ray 03/27/19 18:35 IMPRESSION: 1. Total left hip arthroplasty without definite hardware failure or acute osseous abnormality. 2. Mild degenerative changes of the pelvis. Assessment & Plan - Diagnosis (1) Closed displaced fracture of left femoral neck Is this a current diagnosis for this admission?: Yes Plan: Mobilize with physical therapy and weightbearing as tolerated basis. - Time Time Spent with patient: 15-24 minutes Anticipated discharge: Home with Homehealth Within: within 24 hours
[2019-03-28 07:28] LABS: ANION GAP 8 (5-19); BLOOD UREA NITROGEN 6 mg/dL (7-20); CALCIUM 8.7 mg/dL (8.4-10.2); CARBON DIOXIDE 27 mmol/L (22-30); CHLORIDE 94 mmol/L (98-107); GLUCOSE 100 mg/dL (75-110); POTASSIUM 3.7 mmol/L (3.6-5.0)
[2019-03-28] MEDS ORDERED: SODIUM CHLORIDE 1 GM TABLET PO SCH (10:00)
[2019-03-28] MEDS ORDERED: PRENATAL VITAMIN W DHA CAPSULE PO SCH (10:00)
[2019-03-28] MEDS: SERTRALINE HCL 50 MG TABLET PO SCH (10:02)
[2019-03-28] MEDS: AMLODIPINE BESYLATE 5 MG TABLET PO SCH (10:02)
[2019-03-28] MEDS: OXYCODONE HCL SR 10 MG TABLET PO SCH ×2 (10:02→22:15)
[2019-03-28] MEDS: ASPIRIN 81 MG TABLET, ENT COATED PO SCH (10:03)
[2019-03-28] MEDS: SENNOSIDES/DOCUSATE 8.6-50 MG 1 EACH TABLET PO SCH ×2 (10:03→17:05)
[2019-03-28] MEDS: SULFAMETHOXAZOLE/TRIMETHOPRIM 800-160 MG TABLET PO SCH ×2 (10:03→22:16)
[2019-03-28] MEDS: FAMOTIDINE INJ/PF 20 MG/2 ML SDV IV SCH ×2 (10:03→22:16)
[2019-03-28] MEDS: NORMAL SALINE 1000 ML 1,000 ML IV PRN (10:03)
--- NOTE | 2019-03-28 13:48 | PDOC PROGRESS REPORT ---
Subjective Progress Note for:: 03/28/19 Subjective:: Patient is doing well. Has 3/10 pain in her left hip. Otherwise feels well. Reason For Visit: LEFT FEMORAL NECK FRACTURE Physical Exam Vital Signs: Temp Pulse Resp BP Pulse Ox 98.0 F 71 20 125/49 L 97 03/28/19 03:43 03/28/19 03:43 03/28/19 03:43 03/28/19 03:43 03/28/19 03:43 Intake & Output 03/27/19 03/28/19 03/29/19 06:59 06:59 06:59 Intake Total 2696 1800 1250 Output Total 100 Balance 2696 1700 1250 Weight 53.5 kg 56.2 kg General appearance: PRESENT: no acute distress, cooperative Neck exam: ABSENT: JVD Respiratory exam: PRESENT: clear to auscultation damien, symmetrical, unlabored. ABSENT: tachypnea, wheezes Cardiovascular exam: PRESENT: RRR, +S1, +S2. ABSENT: tachycardia Musculoskeletal exam: PRESENT: tenderness - Mild left hip Results Laboratory Results: 03/28/19 06:40 03/28/19 06:40 03/28/19 03/28/19 06:40 06:40 WBC 10.9 H RBC 3.30 L Hgb 10.0 L Hct 29.4 L MCV 89 MCH 30.3 MCHC 34.1 RDW 17.3 H Plt Count 395 Sodium 128.5 L Potassium 3.7 Chloride 94 L Carbon Dioxide 27 Anion Gap 8 BUN 6 L Creatinine 0.49 L Est GFR ( Amer) > 60 Glucose 100 Calcium 8.7 Impressions: Hip X-Ray 03/25/19 19:26 IMPRESSION: Left femoral neck fracture with 4 cm impaction and minimal lateral displacement. Chest X-Ray 03/25/19 21:06 IMPRESSION: 1. No acute pulmonary findings. Pelvis X-Ray 03/27/19 18:35 IMPRESSION: 1. Total left hip arthroplasty without definite hardware failure or acute osseous abnormality. 2. Mild degenerative changes of the pelvis. Assessment and Plan - Diagnosis (1) Closed displaced fracture of left femoral neck Is this a current diagnosis for this admission?: Yes Plan: s/p ORIF by Dr. 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 up until the evening time for surgery Is on normal saline continuous infusions but I will obtain serum and urine osmolarity as well as urine sodium levels. I will also give 1 L of normal saline bolus and a sodium tablet and will reassess BMP tomorrow morning (3) Essential hypertension Is this a current diagnosis for this admission?: Yes Plan: amlodipine 5 mg daily. blood pressure seems well controlled (4) Leukocytosis Qualifiers: Leukocytosis type: unspecified Qualified Code(s): D72.829 - Elevated white blood cell count, unspecified Is this a current diagnosis for this admission?: Yes Plan: Downtrending currently (5) UTI (urinary tract infection), bacterial Is this a current diagnosis for this admission?: Yes Plan: Patient seems to have been receiving treatment for UTI in the outpatient. Urinalysis is positive. I will continue on Bactrim for 1 more day. - Time Time Spent with patient: 15-24 minutes
[2019-03-28] MEDS ORDERED: NORMAL SALINE 1000 ML 1,000 ML IV ONE (18:40)
[2019-03-28] MEDS: DIPHENHYDRAMINE HCL 50 MG/ML VIAL IV PRN (20:20)
[2019-03-28] MEDS: OXYCODONE HCL IR 5 MG TABLET PO PRN (20:51)
[2019-03-28] MEDS: ZOLPIDEM TARTRATE 5 MG TABLET PO PRN (22:15)
[2019-03-29] MEDS: NORMAL SALINE 1000 ML 1,000 ML IV PRN ×2 (01:15→19:20)
[2019-03-29] MEDS: HEPARIN SOD (PORCINE) 5,000 UNIT/ML 1 ML VIAL SUBCUT SCH ×3 (05:20→21:08)
[2019-03-29] MEDS: IBUPROFEN 800 MG in NORMAL SALINE 250 ML IV SCH ×2 (05:21→13:44)
[2019-03-29 06:37] LABS: HEMATOCRIT 27.1 % (36.0-47.0); HEMOGLOBIN 9.2 g/dL (12.0-15.5); MEAN CORPUSCULAR HEMOGLOBIN 30.3 pg (27.0-33.4); MEAN CORPUSCULAR HGB CONC 33.9 g/dL (32.0-36.0); MEAN CORPUSCULAR VOLUME 89 fl (80-97); PLATELET COUNT 408 10^3/uL (150-450); RED BLOOD COUNT 3.04 10^6/uL (3.72-5.28); RED CELL DISTRIBUTION WIDTH 17.5 % (11.5-14.0); WHITE BLOOD COUNT 8.6 10^3/uL (4.0-10.5)
[2019-03-29 06:58] LABS: ANION GAP 8 (5-19); BLOOD UREA NITROGEN 6 mg/dL (7-20); CALCIUM 8.5 mg/dL (8.4-10.2); CARBON DIOXIDE 27 mmol/L (22-30); CHLORIDE 98 mmol/L (98-107); POTASSIUM 3.5 mmol/L (3.6-5.0)
[2019-03-29 07:02] LABS: GLUCOSE 65 mg/dL (75-110)
--- NOTE | 2019-03-29 07:49 | PDOC PROGRESS REPORT ---
Subjective Progress Note for:: 03/29/19 Subjective:: Patient lying in bed comfortably. Complains of pain/cramping in her thigh. Otherwise denies chest pain shortness of breath or other complaints. Reason For Visit: LEFT FEMORAL NECK FRACTURE Physical Exam Vital Signs: Temp Pulse Resp BP Pulse Ox 98.2 F 70 17 145/57 H 97 03/29/19 02:00 03/29/19 02:00 03/29/19 02:00 03/29/19 02:00 03/29/19 02:00 Intake & Output 03/28/19 03/29/19 03/30/19 06:59 06:59 06:59 Intake Total 1800 4477 Output Total 100 Balance 1700 4477 Weight 56.2 kg 59.6 kg Musculoskeletal exam: PRESENT: other - Left hip: Dressing clean/dry/intact no erythema or drainage. Moderate thigh swelling without change, intact plantarflexion/dorsiflexion. No sensory deficits. No calf tenderness. Results Laboratory Results: 03/29/19 04:58 03/29/19 04:58 03/28/19 03/28/19 03/29/19 06:40 17:40 04:58 WBC 8.6 RBC 3.04 L Hgb 9.2 L Hct 27.1 L MCV 89 MCH 30.3 MCHC 33.9 RDW 17.5 H Plt Count 408 Sodium Potassium Chloride Carbon Dioxide Anion Gap BUN Creatinine Est GFR ( Amer) Glucose Serum Osmolality 259 L Calcium Urine Osmolality 167 L 03/29/19 04:58 WBC RBC Hgb Hct MCV MCH MCHC RDW Plt Count Sodium 132.7 L Potassium 3.5 L Chloride 98 Carbon Dioxide 27 Anion Gap 8 BUN 6 L Creatinine 0.49 L Est GFR ( Amer) > 60 Glucose 65 L Serum Osmolality Calcium 8.5 Urine Osmolality Impressions: Hip X-Ray 03/25/19 19:26 IMPRESSION: Left femoral neck fracture with 4 cm impaction and minimal lateral displacement. Chest X-Ray 03/25/19 21:06 IMPRESSION: 1. No acute pulmonary findings. Pelvis X-Ray 03/27/19 18:35 IMPRESSION: 1. Total left hip arthroplasty without definite hardware failure or acute osseous abnormality. 2. Mild degenerative changes of the pelvis. Assessment & Plan - Diagnosis (1) Closed displaced fracture of left femoral neck Is this a current diagnosis for this admission?: Yes Plan: Postop day #2 status post left total hip arthroplasty 1. Pain control 2. Physical therapy with hip precautions 3. Aspirin for DVT prophylaxis 4. Discharge planning: Patient likely require [facility] facility when bed available. - Time Time Spent with patient: Less than 15 minutes
[2019-03-29] MEDS: AMLODIPINE BESYLATE 5 MG TABLET PO SCH (09:15)
[2019-03-29] MEDS: SERTRALINE HCL 50 MG TABLET PO SCH (09:15)
[2019-03-29] MEDS: FAMOTIDINE INJ/PF 20 MG/2 ML SDV IV SCH ×2 (09:15→21:13)
[2019-03-29] MEDS: SENNOSIDES/DOCUSATE 8.6-50 MG 1 EACH TABLET PO SCH ×2 (09:15→18:18)
[2019-03-29] MEDS: SULFAMETHOXAZOLE/TRIMETHOPRIM 800-160 MG TABLET PO SCH (09:15)
[2019-03-29] MEDS: OXYCODONE HCL SR 10 MG TABLET PO SCH (09:15)
[2019-03-29] MEDS: ASPIRIN 81 MG TABLET, ENT COATED PO SCH (12:16)
--- NOTE | 2019-03-29 18:13 | PDOC PROGRESS REPORT ---
Subjective Progress Note for:: 03/29/19 Subjective:: Patient stable with no complaints. Hip pain is very mild. Reason For Visit: LEFT FEMORAL NECK FRACTURE Physical Exam Vital Signs: Temp Pulse Resp BP Pulse Ox 98.4 F 82 18 129/52 H 96 03/29/19 14:59 03/29/19 14:59 03/29/19 14:59 03/29/19 14:59 03/29/19 14:59 Intake & Output 03/28/19 03/29/19 03/30/19 06:59 06:59 06:59 Intake Total 1800 4477 1250 Output Total 100 Balance 1700 4477 1250 Weight 56.2 kg 59.6 kg General appearance: PRESENT: no acute distress, cooperative Neck exam: ABSENT: JVD Respiratory exam: PRESENT: clear to auscultation damien Cardiovascular exam: PRESENT: +S1, +S2 Neurological exam: PRESENT: alert, awake, oriented to person, oriented to place, oriented to time Results Laboratory Results: 03/29/19 04:58 03/29/19 04:58 03/28/19 03/29/19 03/29/19 17:40 04:58 04:58 WBC 8.6 RBC 3.04 L Hgb 9.2 L Hct 27.1 L MCV 89 MCH 30.3 MCHC 33.9 RDW 17.5 H Plt Count 408 Sodium 132.7 L Potassium 3.5 L Chloride 98 Carbon Dioxide 27 Anion Gap 8 BUN 6 L Creatinine 0.49 L Est GFR ( Amer) > 60 Glucose 65 L Calcium 8.5 Urine Osmolality 167 L Impressions: Hip X-Ray 03/25/19 19:26 IMPRESSION: Left femoral neck fracture with 4 cm impaction and minimal lateral displacement. Chest X-Ray 03/25/19 21:06 IMPRESSION: 1. No acute pulmonary findings. Pelvis X-Ray 03/27/19 18:35 IMPRESSION: 1. Total left hip arthroplasty without definite hardware failure or acute osseous abnormality. 2. Mild degenerative changes of the pelvis. Assessment and Plan - Diagnosis (1) Closed displaced fracture of left femoral neck Is this a current diagnosis for this admission?: Yes Plan: s/p ORIF by Dr. Cisneros on 03/27/2019 Pain control PT recommending SNF for rehab Patient is weightbearing as tolerated DVT prophylaxis Awaiting placement at SNF (2) Hyponatremia Is this a current diagnosis for this admission?: Yes Plan: Urine studies indicate hyponatremia secondary to poor solute and caloric intake Improved nicely with normal saline and diet (3) Essential hypertension Is this a current diagnosis for this admission?: Yes Plan: amlodipine 5 mg daily. blood pressure seems well controlled (4) Leukocytosis Qualifiers: Leukocytosis type: unspecified Qualified Code(s): D72.829 - Elevated white blood cell count, unspecified Is this a current diagnosis for this admission?: Yes Plan: Resolved (5) UTI (urinary tract infection), bacterial Is this a current diagnosis for this admission?: Yes Plan: Patient seems to have been receiving treatment for UTI in the outpatient. Urinalysis is positive. Course of bactrim completed. - Plan Summary Summary: Patient medically ready for discharge awaiting placement at SNF. - Time Time Spent with patient: Less than 15 minutes
[2019-03-29] MEDS: OXYCODONE HCL IR 5 MG TABLET PO PRN (18:18)
[2019-03-29] MEDS ORDERED: NORMAL SALINE 1000 ML 1,000 ML IV ONE (18:45)
[2019-03-29] MEDS: ZOLPIDEM TARTRATE 5 MG TABLET PO PRN (21:15)
[2019-03-29] MEDS: DIPHENHYDRAMINE HCL 50 MG/ML VIAL IV PRN (23:22)
[2019-03-30] MEDS: OXYCODONE HCL IR 5 MG TABLET PO PRN ×4 (00:26→17:35)
[2019-03-30] MEDS: HEPARIN SOD (PORCINE) 5,000 UNIT/ML 1 ML VIAL SUBCUT SCH ×2 (05:14→15:43)
[2019-03-30 06:04] LABS: HEMATOCRIT 25.8 % (36.0-47.0); HEMOGLOBIN 8.7 g/dL (12.0-15.5); MEAN CORPUSCULAR VOLUME 88 fl (80-97); PLATELET COUNT 379 10^3/uL (150-450); RED BLOOD COUNT 2.91 10^6/uL (3.72-5.28); RED CELL DISTRIBUTION WIDTH 17.7 % (11.5-14.0); WHITE BLOOD COUNT 9.8 10^3/uL (4.0-10.5)
[2019-03-30] MEDS: NORMAL SALINE 1000 ML 1,000 ML IV PRN (06:10)
[2019-03-30 06:26] LABS: ANION GAP 9 (5-19); BLOOD UREA NITROGEN 4 mg/dL (7-20); CALCIUM 8.3 mg/dL (8.4-10.2); CARBON DIOXIDE 25 mmol/L (22-30); CHLORIDE 100 mmol/L (98-107); GLUCOSE 72 mg/dL (75-110); POTASSIUM 3.2 mmol/L (3.6-5.0)
[2019-03-30] MEDS: SERTRALINE HCL 50 MG TABLET PO SCH (10:37)
[2019-03-30] MEDS: ASPIRIN 81 MG TABLET, ENT COATED PO SCH (10:37)
[2019-03-30] MEDS: SENNOSIDES/DOCUSATE 8.6-50 MG 1 EACH TABLET PO SCH ×2 (10:37→17:02)
[2019-03-30] MEDS: AMLODIPINE BESYLATE 5 MG TABLET PO SCH (10:38)
[2019-03-30] MEDS: FAMOTIDINE INJ/PF 20 MG/2 ML SDV IV SCH (10:38)
--- NOTE | 2019-03-30 11:54 | PDOC PROGRESS REPORT ---
Subjective Subjective:: Patient lying in bed comfortably. Complains of pain/cramping in her thigh which has improved while laying in bed. Has underwent physical therapy with assistance. Denies chest pain or shortness of breath. Reason For Visit: LEFT FEMORAL NECK FRACTURE Physical Exam Vital Signs: Temp Pulse Resp BP Pulse Ox 98.4 F 82 18 129/52 H 96 03/29/19 14:59 03/29/19 14:59 03/29/19 14:59 03/29/19 14:59 03/29/19 14:59 Intake & Output 03/29/19 03/30/19 03/31/19 06:59 06:59 06:59 Intake Total 4477 3490 Balance 4477 3490 Weight 59.6 kg 63.6 kg Musculoskeletal exam: PRESENT: other - Left hip: Dressing clean/dry/intact no erythema or drainage. Moderate thigh swelling without change, intact plantarflexion/dorsiflexion. No sensory deficits. No calf tenderness. Results Laboratory Results: 03/30/19 05:41 03/30/19 05:41 03/30/19 03/30/19 05:41 05:41 WBC 9.8 RBC 2.91 L Hgb 8.7 L Hct 25.8 L MCV 88 MCH 30.0 MCHC 34.0 RDW 17.7 H Plt Count 379 Sodium 134.1 L Potassium 3.2 L Chloride 100 Carbon Dioxide 25 Anion Gap 9 BUN 4 L Creatinine 0.43 L Est GFR ( Amer) > 60 Glucose 72 L Calcium 8.3 L Impressions: Hip X-Ray 03/25/19 19:26 IMPRESSION: Left femoral neck fracture with 4 cm impaction and minimal lateral displacement. Chest X-Ray 03/25/19 21:06 IMPRESSION: 1. No acute pulmonary findings. Pelvis X-Ray 03/27/19 18:35 IMPRESSION: 1. Total left hip arthroplasty without definite hardware failure or acute osseous abnormality. 2. Mild degenerative changes of the pelvis. Assessment & Plan - Diagnosis (1) Closed displaced fracture of left femoral neck Is this a current diagnosis for this admission?: Yes Plan: Status post left total hip arthroplasty for femoral neck fracture. 1. Physical therapy with hip precautions 2. Pain control 3. Aspirin for DVT prophylaxis. 4. Discharge planning patient will likely require senior living facility upon discharge. May follow-up as an outpatient with Dr. Cisneros in 2 weeks. - Time Time Spent with patient: Less than 15 minutes
--- NOTE | 2019-03-30 12:08 | PDOC TRANSFER SUMMARY ---
Impression - Admit/DC Date/PCP Admission Date/Primary Care Provider: 03/25/19 21:45 SANTOS TURNER MD Discharge Date: 03/30/19 - Discharge Diagnosis (1) Closed displaced fracture of left femoral neck Is this a current diagnosis for this admission?: Yes (2) Hyponatremia Is this a current diagnosis for this admission?: Yes (3) Essential hypertension Is this a current diagnosis for this admission?: Yes (4) Leukocytosis Is this a current diagnosis for this admission?: Yes (5) UTI (urinary tract infection), bacterial Is this a current diagnosis for this admission?: Yes - Assessment Summary: Patient was admitted for treatment of left femoral neck fracture. Of note patient had presented several days after the initial occurrence I was concerned for shortened left leg at the time of presentation. X-ray revealed moderate displacement of fractured subtrochanteric femoral neck in the left lower extremity. Patient was also noted to have leukocytosis of 13 and hyponatremia of 124. Regarding patient's left hip fracture, patient underwent ORIF on 03/27/2019 with left total hip arthroplasty performed by Dr. Cisneros. Evaluated by rehab and deemed to need rehabilitation for the short-term. Patient has not required much analgesics during her stay here but does have a prescription for oxycodone recommended by Dr. Cisneros to help control pain during rehab. Regarding patient's hyponatremia, urine and blood studies revealed that this is likely secondary to poor solute intake and this is currently resolved after receiving a few normal saline boluses and adequate diet. Today her sodium level is 134. Patient's leukocytosis has also resolved. Patient was also treated for acute uncomplicated cystitis and has completed 5-day course of Bactrim. Patient is stable for discharge. (1) Closed displaced fracture of left femoral neck Is this a current diagnosis for this admission?: Yes Plan: s/p ORIF with left total hip arthroplasty by Dr. Cisneros on 03/27/2019 Pain control PT recommending SNF for rehab Patient is weightbearing as tolerated with hip precautions Dr. Arun Cisneros recommends baby dose of aspirin daily for DVT prophylaxis and would like for patient to follow-up with him in 2 weeks for reevaluation. (2) Hyponatremia Is this a current diagnosis for this admission?: Yes Plan: Hyperosmolar hyponatremia Urine studies showing low urine osmolarity and urine sodium indicating hyponatremia secondary to poor solute and caloric intake Improved nicely with normal saline and adequate diet. 134 today. (3) Essential hypertension Is this a current diagnosis for this admission?: Yes Plan: amlodipine 5 mg daily. blood pressure seems well controlled (4) Leukocytosis Qualifiers: Leukocytosis type: unspecified Qualified Code(s): D72.829 - Elevated white blood cell count, unspecified Is this a current diagnosis for this admission?: Yes Plan: Resolved (5) UTI (urinary tract infection), bacterial Is this a current diagnosis for this admission?: Yes Plan: Patient seems to have been receiving treatment for UTI in the outpatient. Urinalysis is positive. 5-day course of bactrim completed. - Additional Information Resuscitation Status: Full Code Discharge Diet: As Tolerated Discharge Activity: Slowly Increase Activity, Supervised Activity Referrals: ARUN CISNEROS MD [ACTIVE STAFF] - (L FEMUR FRACTURE. Call to make follow-up appointment in 2 weeks) Prescriptions: Oxycodone HCl [Oxy-Ir 5 mg Tablet] 5 mg PO Q6HP PRN #5 tablet PRN Reason: Home Medications: Amlodipine Besylate [Norvasc 5 mg Tablet] 5 mg PO DAILY 03/25/19 B Complex C 11/Calcium/Dha/Q10 [Brain Tgctp-Vyz-No Q10 Tablet] 1 each PO DAILY 03/25/19 Candesartan Cilexetil [Atacand 32 mg Tablet] 32 mg PO DAILY 03/25/19 Multivit with Iron,Minerals [Spectravite Senior] 1 tab PO DAILY 03/25/19 Sertraline HCl 50 mg PO DAILY 03/25/19 Acetaminophen [Tylenol 650 mg Supp] 650 mg OH Q4HP PRN supp.rect 03/30/19 Aspirin [Ecotrin 81 mg EC Tablet] 81 mg PO DAILY tabec 03/30/19 Nicotine [Nicoderm 21 mg/24 Hr Transderm Patch] 1 each TD DAILYP PRN #0 patch .td24 03/30/19 Oxycodone HCl [Oxy-Ir 5 mg Tablet] 5 mg PO Q6HP PRN #5 tablet 03/30/19 History of Present Illiness History of Present Illness: JUSTIN FROST is a 73 year old female who presented to the emergency room with a 16-day history of left hip pain. The patient admits to a fall in the hallway of her home on March 09 of this year with a resultant painful left hip worsened by attempts at movement of the hip or weightbearing. She has been confined to bed and a wheelchair since the injury. The pain is a constant aching of moderate intensity without radiation that becomes a severe sharp grating pain with hip movement. She denies any associated or accompanying signs and symptoms. She denies prior similar episodes. She has not identified any additional aggravating or ameliorating factors for her left hip pain. She went to her primary care physician's office today and was found to have a fracture of her left hip and sent to the emergency room for further evaluation and treatment. In the emergency room x-ray revealed an impacted femoral neck fracture with moderate displacement. Patient was subsequently admitted to the hospital for further evaluation and treatment with Dr. Rosario insisting that the hospitalist service had to admit the patient and consult him for treatment. Physical Exam Vital Signs: Temp Pulse Resp BP Pulse Ox 98.4 F 82 18 129/52 H 96 03/29/19 14:59 03/29/19 14:59 03/29/19 14:59 03/29/19 14:59 03/29/19 14:59 Intake & Output 03/29/19 03/30/19 03/31/19 06:59 06:59 06:59 Intake Total 4477 3490 Balance 4477 3490 Weight 59.6 kg 63.6 kg General appearance: PRESENT: no acute distress, cooperative Respiratory exam: PRESENT: clear to auscultation damien Cardiovascular exam: PRESENT: +S1, +S2 Extremities exam: PRESENT: other - Mild tenderness to left hip at site of open reduction and internal fixation. Shortened left lower extremity Neurological exam: PRESENT: alert, awake, oriented to person, oriented to place, oriented to situation Results Laboratory Results: WBC 9.8 10^3/uL (4.0-10.5) 03/30/19 05:41 RBC 2.91 10^6/uL (3.72-5.28) L 03/30/19 05:41 Hgb 8.7 g/dL (12.0-15.5) L 03/30/19 05:41 Hct 25.8 % (36.0-47.0) L 03/30/19 05:41 MCV 88 fl (80-97) 03/30/19 05:41 MCH 30.0 pg (27.0-33.4) 03/30/19 05:41 MCHC 34.0 g/dL (32.0-36.0) 03/30/19 05:41 RDW 17.7 % (11.5-14.0) H 03/30/19 05:41 Plt Count 379 10^3/uL (150-450) 03/30/19 05:41 Lymph % (Auto) 11.4 % (13-45) L 03/25/19 20:21 [place] % (Auto) 9.3 % (3-13) 03/25/19 20:21 Eos % (Auto) 0.6 % (0-6) 03/25/19 20:21 Baso % (Auto) 0.3 % (0-2) 03/25/19 20:21 Absolute Neuts (auto) 10.8 10^3/uL (1.7-8.2) H 03/25/19 20:21 Absolute Lymphs (auto) 1.6 10^3/uL (0.5-4.7) 03/25/19 20:21 Absolute Monos (auto) 1.3 10^3/uL (0.1-1.4) 03/25/19 20:21 Absolute Eos (auto) 0.1 10^3/uL (0.0-0.6) 03/25/19 20:21 Absolute Basos (auto) 0.0 10^3/uL (0.0-0.2) 03/25/19 20:21 Seg Neutrophils % 78.4 % (42-78) H 03/25/19 20:21 PT 11.9 SEC (11.4-15.4) 03/25/19 20:21 INR 0.88 03/25/19 20:21 APTT 30.9 SEC (23.5-35.8) 03/25/19 20:21 Sodium 134.1 mmol/L (137-145) L 03/30/19 05:41 Potassium 3.2 mmol/L (3.6-5.0) L 03/30/19 05:41 Chloride 100 mmol/L (98-107) 03/30/19 05:41 Carbon Dioxide 25 mmol/L (22-30) 03/30/19 05:41 Anion Gap 9 (5-19) 03/30/19 05:41 BUN 4 mg/dL (7-20) L 03/30/19 05:41 Creatinine 0.43 mg/dL (0.52-1.25) L 03/30/19 05:41 Est GFR ( Amer) > 60 (>60) 03/30/19 05:41 Est GFR (MDRD) Non-Af > 60 (>60) 03/30/19 05:41 Glucose 72 mg/dL (75-110) L 03/30/19 05:41 POC Glucose 104 mg/dL (70-110) 03/29/19 09:17 Serum Osmolality 259 mOsm/kg (275-301) L 03/28/19 06:40 Calcium 8.3 mg/dL (8.4-10.2) L 03/30/19 05:41 Magnesium 2.0 mg/dL (1.6-2.3) 03/26/19 04:50 Urine Color YELLOW 03/26/19 00:39 Urine Appearance CLOUDY 03/26/19 00:39 Urine pH 6.0 (5.0-9.0) 03/26/19 00:39 Ur Specific [place] 1.002 03/26/19 00:39 Urine Protein NEGATIVE mg/dL (NEGATIVE) 03/26/19 00:39 Urine Glucose (UA) NEGATIVE mg/dL (NEGATIVE) 03/26/19 00:39 Urine Ketones NEGATIVE mg/dL (NEGATIVE) 03/26/19 00:39 Urine Blood SMALL (NEGATIVE) H 03/26/19 00:39 Urine Nitrite POSITIVE (NEGATIVE) H 03/26/19 00:39 Urine Bilirubin NEGATIVE (NEGATIVE) 03/26/19 00:39 Urine Urobilinogen NEGATIVE mg/dL (<2.0) 03/26/19 00:39 Ur Leukocyte Esterase LARGE (NEGATIVE) H 03/26/19 00:39 Urine WBC (Auto) 40 /HPF 03/26/19 00:39 Urine RBC (Auto) 1 /HPF 03/26/19 00:39 U Hyaline Cast (Auto) 1 /LPF 03/26/19 00:39 Urine Bacteria (Auto) TRACE /HPF 03/26/19 00:39 Urine WBC Clumps MANY /HPF 03/26/19 00:39 Squamous Epi Cells Auto <1 /HPF 03/26/19 00:39 Urine Osmolality 167 mOsm/kg (300-900) L 03/28/19 17:40 Urine Sodium 15 mmol/L (30-90) L 03/28/19 17:40 Urine Ascorbic Acid NEGATIVE (NEGATIVE) 03/26/19 00:39 Impressions: Hip X-Ray 03/25/19 19:26 IMPRESSION: Left femoral neck fracture with 4 cm impaction and minimal lateral displacement. Chest X-Ray 03/25/19 21:06 IMPRESSION: 1. No acute pulmonary findings. Pelvis X-Ray 03/27/19 18:35 IMPRESSION: 1. Total left hip arthroplasty without definite hardware failure or acute osseous abnormality. 2. Mild degenerative changes of the pelvis. Plan Time Spent: Less than 30 Minutes Stroke Is this a Stroke Patient?: No Acute Heart Failure - Is this a Heart Failure Patient?: No
[2019-03-30] MEDS ORDERED: POTASSIUM CHLORIDE 10 MEQ TABLET.ER PO ONE (12:30)
[2019-03-30 18:20] VITALS: BP 143/70
== END 2019-03-30 20:53 | DRG 481 ==
LOC: ER 17:41 → EH 21:45 → 4N 03-26 02:22
PROVIDERS: ADMIT Emergency Medicine; ATTEND Emergency Medicine
PROC: 0QHC36Z Insertion of Intramedullary Internal Fixation Device into Left Lower Femur, Percutaneous Approach (ICD-10-PCS; principal; 2019-03-27 18:00)
DX: S72.002A Fracture of unspecified part of neck of left femur, initial encounter for closed fracture (principal); E87.1 Hypo-osmolality and hyponatremia; N30.00 Acute cystitis without hematuria; I10 Essential (primary) hypertension; W18.30XA Fall on same level, unspecified, initial encounter; Z88.8 Allergy status to other drugs, medicaments and biological substances; Z87.891 Personal history of nicotine dependence; Y92.018 Other place in single-family (private) house as the place of occurrence of the external cause; Z82.49 Family history of ischemic heart disease and other diseases of the circulatory system; Z79.82 Long term (current) use of aspirin
CPT/HCPCS: 01214; 36415; 71045; 72170; 80048; 81001; 82962; 83735; 83930; 83935; 84300; 85025; 85027; 85610; 85730; 88304; 88311; 93005; 93010; 94799; 96374; 96375; 99284; C1776; C9290; J1200; J1644; J1741; J2250; J2270; J2405; J2704; J3010; J3370; J3490; J7030; J7050; J7060; J7121; S0028

== ENCOUNTER 2019-04-13 15:02 | Inpatient (IN) | payer MEDICARE, OTHER ==
--- NOTE | 2019-04-13 15:47 | RADIOLOGY REPORT (SQ) ---
EXAM DESCRIPTION: PELVIS AP COMPLETED DATE/TIME: 04/13/2019 3:30 pm REASON FOR STUDY: LEFT HIP displacement COMPARISON: Left hip films 03/25/2019, 03/27/2019 NUMBER OF VIEWS: One view TECHNIQUE: AP Pelvis LIMITATIONS: None. FINDINGS: MINERALIZATION: Osteopenic HIPS: Right hip is unremarkable. Left hip prosthesis is present, the femoral head portion of the prosthesis is dislocated superiorly o ut of the acetabulum. PELVIS AND SACRUM: No acute fracture or dislocation. No worrisome bone lesions. PUBIS AND ISCHIUM: No acute fracture. SOFT TISSUES: No findings. OTHER: No other significant finding. IMPRESSION: Left hip prosthesis is present, the femoral head portion of the prosthesis is dislocated superiorly out of the acetabulum. TECHNICAL DOCUMENTATION: JOB ID: [id number] [employer]- All Rights Reserved Reading location - IP/workstation name: [email or web address]
[2019-04-13] MEDS ORDERED: ONDANSETRON HCL INJ/PF 4 MG/2 ML SDV IV ONE (16:20)
[2019-04-13] MEDS ORDERED: PROPOFOL INJ 200 MG/20 ML VIAL IV ONE (16:20)
--- NOTE | 2019-04-13 16:23 | ER Document Report ---
ED Hip Pain/Injury - General Chief Complaint: Hip Pain Stated Complaint: HIP DISLOCATION Time Seen by Provider: 04/13/19 16:13 Primary Care Provider: SANTOS TURNER MD [Primary Care Provider] - Follow up as needed Notes: Patient is a 73-year-old female who was sent in by [facility] did see Tamra Thornton she came in complaining of chest pain she had been here 2 days ago with chest pain hernia No fever or neck rigidity. Coming from [facility] apparently been complaining of pain yesterday and x-ray was performed which is showing a hip dislocation. Patient had a femoral neck fracture and had a surgery with hip replacement done on 03/27. states that when patient was returning from the appointment and getting back into bed at [place], she had some pain but not as much as yesterday. Patient was sent in for reduction of left hip dislocation. Of note, states that she is also had cough and congestion over the last week. TRAVEL OUTSIDE OF THE [place] IN LAST 30 DAYS: No - HPI Patient complains to provider of: Hip Occurred: Yesterday - Related Data Allergies/Adverse Reactions: lisinopril Allergy (Severe, Verified 03/25/19 19:05) Swelling of hands and/or feet Past Medical History - Social History Smoking Status: Former Smoker Frequency of alcohol use: Rare Drug Abuse: None Family History: Reviewed & Not Pertinent Patient has suicidal ideation: No Patient has homicidal ideation: No - Past Medical History Cardiac Medical History: Reports: Hx Hypertension Denies: Hx Coronary Artery Disease, Hx Heart Attack Pulmonary Medical History: Denies: Hx Asthma, Hx COPD Neurological Medical History: Denies: Hx Seizures Endocrine Medical History: Denies: Hx Diabetes Mellitus Type 1, Hx Diabetes Mellitus Type 2, Hx Hyperthyroidism, Hx Hypothyroidism GI Medical History: Denies: Hx Cirrhosis, Hx Crohn's Disease, Hx Gastroesophag eal Reflux Disease, Hx Hepatitis, Hx Ulcerative Colitis Musculoskeletal Medical History: Denies Hx Arthritis, Denies Hx Gout Skin Medical History: Denies Hx Eczema, Denies Hx Psoriasis Psychiatric Medical History: Denies: Hx Depression Infectious Medical History: Denies: Hx Hepatitis Past Surgical History: Reports: Hx Orthopedic Surgery - L hip replacement Review of Systems - Review of Systems -: Yes All other systems reviewed and negative Physical Exam - Vital signs Vitals: Temp Pulse Resp BP Pulse Ox 98.2 F 70 18 127/59 H 93 04/13/19 15:12 04/13/19 15:12 04/13/19 15:12 04/13/19 15:12 04/13/19 15:12 Interpretation: Normal - General General appearance: Appears well, Alert - HEENT Head: Normocephalic, Atraumatic Eyes: Normal Pupils: PERRL - Respiratory Respiratory status: No respiratory distress Chest status: Nontender Breath sounds: Normal Chest palpation: Normal - Cardiovascular Rhythm: Regular Heart sounds: Normal auscultation Murmur: No - Abdominal Inspection: Normal Distension: No distension Bowel sounds: Normal Tenderness: Nontender Organomegaly: No organomegaly - Back Back: Normal, Nontender - Extremities General upper extremity: Normal inspection, Nontender, Normal color, Normal ROM, Normal temperature General lower extremity: Tender Hip: Tender, Dislocation - Neurological Neuro grossly intact: Yes Cognition: Normal Orientation: AAOx4 [place] Coma Scale Eye Opening: Spontaneous Shelly Coma Scale Verbal: Oriented Shelly Coma Scale Motor: Obeys Commands [place] Coma Scale Total: 15 Speech: Normal Motor strength normal: LUE, RUE, LLE, RLE Sensory: Normal - Psychological Associated symptoms: Normal affect, Normal mood - Skin Skin Temperature: Warm Skin Moisture: Dry Skin Color: Normal Course - Re-evaluation Re-evalutation: 04/13/19 16:20 Patient was discussed with Dr. Rosario. Patient had surgery for femoral neck fracture on 8. Had increased hip pain since at least yesterday, possibly Juliet rsday and an x-ray showing dislocation. Will attempt to reduce in the emergency department. Patient has had a cough so chest x-ray and blood work will come back before attempting sedation. 04/13/19 17:30 Labs and CXR clear. 04/13/19 18:[address] Rosario back. Unable to get hip back in with sedation. Patient was given propofol 90 mg and attempted to do distraction, internal and external r otation. No movement of hip. Patient began to cough and procedure was stopped. He will be in to see her. 04/13/19 20:46 Dr. Rosario has been in to see the patient. Patient will likely need open r eduction with a hip surgeon. There is no hip surgeon on at this facility until at least next week. Discussed with [facility]. Patient will be accepted there will be seen by Dr. Mazariegos, hip surgeon. Patient is agreeable to this plan. Transport arranged. Patient is medically stable for transfer. Of note, no evidence for infection on chest x-ray; however given persistent patient's persistent cough. Doxycycline will be started. - Vital Signs Vital signs: Temp Pulse Resp BP Pulse Ox 98.2 F 84 19 155/72 H 95 04/13/19 15:12 04/13/19 17:45 04/13/19 19:01 04/13/19 19:00 04/13/19 19:01 - Laboratory Result Diagrams: 04/13/19 16:22 04/13/19 16:22 Laboratory results interpreted by me: 04/13/19 04/13/19 04/13/19 16:22 16:22 16:22 WBC 11.7 H RBC 3.21 L Hgb 9.1 L Hct 27.5 L RDW 18.8 H Plt Count 778 H Absolute Neuts (auto) 8.3 H ESR APTT 37.4 H Sodium 132.9 L Chloride 95 L Alkaline Phosphatase 166 H C-Reactive Protein Albumin 3.1 L 04/13/19 04/13/19 16:22 16:22 WBC RBC Hgb Hct RDW Plt Count Absolute Neuts (auto) ESR 74 H APTT Sodium Chloride Alkaline Phosphatase C-Reactive Protein 30.7 H Albumin - Diagnostic Test Radiology reviewed: Image reviewed, Reports reviewed Procedures - Conscious Sedation Conscious sedation Consent obtained: Yes Prior complications: Procedural sedation Pt with a mild systemic disease.: P2. - ASA Classification. Airway Evaluation: Normal anatomy Mallampati Classification: Class 1 Used during procedure: Suction available, IV access obtained, Pulse ox on pt., council member on pt. Medications administered: Diprivan Reversal agents: None I personally performed/intraservice time: Sedation, Procedure, 30 min or less Complications: No - Patient began coughing and looks like she may vomit. Vitals remained stabl - Joint Reduction/Fracture Care Left Hip Consent obtained: Yes Conscious sedation: Yes Pre-procedure NV exam: Yes Manipulation comment: Distraction, internal and external rotation Post-procedure NV exam: Yes Post-reduction x-ray: Joint not reduced Complications: Yes - Joint not reduced Discharge - Discharge Clinical Impression: Cough Hip dislocation, left Qualifiers: Encounter type: initial encounter Qualified Code(s): S73.005A - Unspecified d islocation of left hip, initial encounter Condition: Stable [facility]position[facility] Referrals: SANTOS TURNER MD [Primary Care Provider] - Follow up as needed
[2019-04-13 16:45] LABS: ABSOLUTE BASOPHILS # (AUTO) 0.1 10^3/uL (0.0-0.2); ABSOLUTE EOSINOPHILS # (AUTO) 0.1 10^3/uL (0.0-0.6); ABSOLUTE LYMPHOCYTES (AUTO) 2.3 10^3/uL (0.5-4.7); ABSOLUTE NEUT (AUTO) 8.3 10^3/uL (1.7-8.2); BASOPHILS % (AUTO) 0.5 % (0-2); EOSINOPHILS % (AUTO) 0.8 % (0-6); HEMATOCRIT 27.5 % (36.0-47.0); HEMOGLOBIN 9.1 g/dL (12.0-15.5); LYMPHOCYTES % (AUTO) 19.8 % (13-45); MEAN CORPUSCULAR HEMOGLOBIN 28.4 pg (27.0-33.4); MEAN CORPUSCULAR HGB CONC 33.2 g/dL (32.0-36.0); MEAN CORPUSCULAR VOLUME 86 fl (80-97); MONOCYTES % (AUTO) 8.7 % (3-13); PLATELET COUNT 778 10^3/uL (150-450); RED BLOOD COUNT 3.21 10^6/uL (3.72-5.28); RED CELL DISTRIBUTION WIDTH 18.8 % (11.5-14.0); SEGMENTED NEUTROPHILS % (AUTO) 70.2 % (42-78); TOTAL CELLS COUNTED % (AUTO) 100 %; WHITE BLOOD COUNT 11.7 10^3/uL (4.0-10.5)
[2019-04-13 16:52] LABS: INTERNATIONAL RATION (INR) 1.04; PROTHROMBIN TIME 13.6 SEC (11.4-15.4)
[2019-04-13 16:53] LABS: PARTIAL THROMBOPLASTIN TIME 37.4 SEC (23.5-35.8)
[2019-04-13 17:02] LABS: ALBUMIN 3.1 g/dL (3.5-5.0); ALKALINE PHOSPHATASE 166 U/L (38-126); ANION GAP 8 (5-19); ASPARTATE AMINO TRANSFERASE 24 U/L (14-36); BILIRUBIN,DIRECT 0.2 mg/dL (0.0-0.4); BILIRUBIN,TOTAL 0.2 mg/dL (0.2-1.3); BLOOD UREA NITROGEN 8 mg/dL (7-20); CALCIUM 8.9 mg/dL (8.4-10.2); CARBON DIOXIDE 30 mmol/L (22-30); CHLORIDE 95 mmol/L (98-107); GLUCOSE 93 mg/dL (75-110); POTASSIUM 4.2 mmol/L (3.6-5.0); TOTAL PROTEIN 6.6 g/dL (6.3-8.2)
[2019-04-13] MEDS ORDERED: NORMAL SALINE 1000 ML 1,000 ML IV ONE (17:06)
--- NOTE | 2019-04-13 18:14 | RADIOLOGY REPORT (SQ) ---
EXAM DESCRIPTION: CHEST SINGLE VIEW COMPLETED DATE/TIME: 04/13/2019 5:36 pm REASON FOR STUDY: cough COMPARISON: 03/25/2019 EXAM PARAMETERS: NUMBER OF VIEWS: One view. TECHNIQUE: Single frontal radiographic view of the chest acquired. RADIATION DOSE: NA LIMITATIONS: None. FINDINGS: LUNGS AND PLEURA: No opacities, masses or pneumothorax. No pleural effusion. MEDIASTINUM AND HILAR STRUCTURES: No masses. Contour normal. HEART AND VASCULAR STRUCTURES: Cardiomegaly. BONES: No acute findings. HARDWARE: None in the chest. OTHER: Calcified breast implants. IMPRESSION: Cardiomegaly without acute abnormality of the lungs in AP portable projection. TECHNICAL DOCUMENTATION: JOB ID: [id number] [employer]- All Rights Reserved Reading location - IP/workstation name: [email or web address]
[2019-04-13] MEDS ORDERED: OXYCODONE-ACETAMINOPHEN 5-325 MG TABLET PO PRN (19:15)
[2019-04-13] MEDS ORDERED: MORPHINE SULFATE 10 MG/ML INJ IV PRN (19:15)
--- NOTE | 2019-04-13 19:56 | PDOC H&P ---
History of Present Illness Admission Date/PCP: SANTOS TURNER MD Patient complains of: Left hip pain History of Present Illness: JUSTIN FROST is a 73 year old female who sustained a fall at home onto her left hip. She subsequently underwent total hip arthroplasty on 03/27/2019. According the patient's she has been having difficulty with ambulation since her hip replacement but they did notice over the past few days mild increased pain. She is also had a notable limb length inequality and has seen Dr. Cisneros in the office on for this issue and it was felt secondary to pelvic tilt. Patient denies fever chills or sweats. Pain 3/5 with attempted motion. Past Medical History Cardiac Medical History: Reports: Hypertension Denies: Coronary Artery Disease, Myocardial Infarction Pulmonary Medical History: Denies: Asthma, Chronic Obstructive Pulmonary Disease (COPD) Neurological Medical History: Denies: Seizures Endocrine Medical History: Denies: Diabetes Mellitus Type 1, Diabetes Mellitus Type 2, Hyperthyroidism, Hypothyroidism GI Medical History: Denies: Cirrhosis, Crohn's Disease, Gastroesophageal Reflux Disease, Hepatitis, Ulcerative Colitis Musculoskeltal Medical History: Denies: Arthritis, Gout Skin Medical History: Denies: Eczema, Psoriasis Psychiatric Medical History: Denies: Depression Hematology: Denies: Anemia, Bleeding Tendencies Past Surgical History Past Surgical History: Reports: Orthopedic Surgery - L hip replacement Social History Smoking Status: Former Smoker Frequency of Alcohol Use: None Hx Recreational Drug Use: No Drugs: None Hx Prescription Drug Abuse: No Family History Family History: Reviewed & Not Pertinent Parental Family History Reviewed: No Children Family History Reviewed: No Sibling(s) Family History Reviewed.: No Medication/Allergy Home Medications: Amlodipine Besylate [Norvasc 5 mg Tablet] 5 mg PO DAILY 03/25/19 B Complex C 11/Calcium/Dha/Q10 [Brain Biusg-Vai-Ux Q10 Tablet] 1 each PO DAILY 03/25/19 Candesartan Cilexetil [Atacand 32 mg Tablet] 32 mg PO DAILY 03/25/19 Multivit with Iron,Minerals [Spectravite Senior] 1 tab PO DAILY 03/25/19 Sertraline HCl 50 mg PO DAILY 03/25/19 Acetaminophen [Tylenol 650 mg Supp] 650 mg WA Q4HP PRN supp.rect 03/30/19 Aspirin [Ecotrin 81 mg EC Tablet] 81 mg PO DAILY tabec 03/30/19 Nicotine [Nicoderm 21 mg/24 Hr Transderm Patch] 1 each TD DAILYP PRN #0 patch.td24 03/30/19 Oxycodone HCl [Oxy-Ir 5 mg Tablet] 5 mg PO Q6HP PRN #5 tablet 03/30/19 Allergies/Adverse Reactions: lisinopril Allergy (Severe, Verified 03/25/19 19:05) Swelling of hands and/or feet Review of Systems Constitutional: ABSENT: chills, fever(s), headache(s), weight gain, weight loss Eyes: ABSENT: visual disturbances Ears: ABSENT: hearing changes Cardiovascular: ABSENT: chest pain, dyspnea on exertion, edema, orthropnea, palpitations Respiratory: ABSENT: cough, hemoptysis Gastrointestinal: ABSENT: abdominal pain, constipation, diarrhea, hematemesis, hematochezia, nausea, vomiting Genitourinary: ABSENT: dysuria, hematuria Musculoskeletal: PRESENT: as per HPI Integumentary: ABSENT: rash, wounds Neurological: ABSENT: abnormal gait, abnormal speech, confusion, dizziness, focal weakness, syncope Psychiatric: ABSENT: anxiety, depression, homidical ideation, suicidal ideation Endocrine: ABSENT: cold intolerance, heat intolerance, menstrual abnormalities, polydipsia, polyuria Hematologic/Lymphatic: ABSENT: easy bleeding, easy bruising, lymphadenopathy Physical Exam Vital Signs: Temp Pulse Resp BP Pulse Ox 98.2 F 84 18 136/104 H 94 04/13/19 15:12 04/13/19 17:45 04/13/19 18:01 04/13/19 18:00 04/13/19 18:00 Intake & Output 04/12/19 04/13/19 04/14/19 06:59 06:59 06:59 Intake Total 733 Balance 733 Weight 50.1 kg General appearance: PRESENT: no acute distress, well-developed, well-nourished Head exam: PRESENT: atraumatic, normocephalic Eye exam: PRESENT: conjunctiva pink, EOMI, PERRLA. ABSENT: scleral icterus Ear exam: PRESENT: normal external ear exam Mouth exam: PRESENT: moist, tongue midline Neck exam: PRESENT: full ROM. ABSENT: carotid bruit, JVD, lymphadenopathy, thyromegaly Respiratory exam: PRESENT: unlabored Cardiovascular exam: PRESENT: RRR. ABSENT: diastolic murmur, rubs, systolic murmur Pulses: PRESENT: normal dorsalis pedis pul, +2 pedal pulses bilateral Vascular exam: PRESENT: normal capillary refill GI/Abdominal exam: PRESENT: normal bowel sounds, soft. ABSENT: distended, guarding, mass, organolmegaly, rebound, tenderness Rectal exam: PRESENT: deferred Musculoskeletal exam: PRESENT: other - Left hip: Notable limb length inequality on the left side. No pain with mild flexion however pain with flexion greater than 45 degrees. Limited internal/external rotation. No significant internal rotation or external rotation deformity at rest. Surgical incision is healed there is mild bruising and erythema along the incision site. Nontender to palpation. Neurological exam: PRESENT: alert, awake, oriented to person, oriented to place, oriented to time, oriented to situation, CN II-XII grossly intact. ABSENT: motor sensory deficit Psychiatric exam: PRESENT: appropriate affect, normal mood. ABSENT: homicidal ideation, suicidal ideation Skin exam: PRESENT: dry, intact, warm. ABSENT: cyanosis, rash Results Laboratory Results: 04/13/19 16:22 04/13/19 16:22 04/13/19 04/13/19 04/13/19 16:22 16:22 16:22 WBC 11.7 H RBC 3.21 L Hgb 9.1 L Hct 27.5 L MCV 86 MCH 28.4 MCHC 33.2 RDW 18.8 H Plt Count 778 H Seg Neutrophils % 70.2 Sodium 132.9 L Potassium 4.2 Chloride 95 L Carbon Dioxide 30 Anion Gap 8 BUN 8 Creatinine 0.52 Est GFR ( Amer) > 60 Glucose 93 Calcium 8.9 Total Bilirubin 0.2 AST 24 Alkaline Phosphatase 166 H Total Protein 6.6 Albumin 3.1 L Blood Type A POSITIVE Antibody Screen NEGATIVE Impressions: Chest X-Ray 04/13/19 00:00 IMPRESSION: Cardiomegaly without acute abnormality of the lungs in AP portable projection. Pelvis X-Ray 04/13/19 15:05 IMPRESSION: Left hip prosthesis is present, the femoral head portion of the prosthesis is dislocated superiorly out of the acetabulum. Assessment & Plan - Diagnosis (1) Hip dislocation, left Qualifiers: Encounter type: initial encounter Qualified Code(s): S73.005A - Unspecified dislocation of left hip, initial encounter Is this a current diagnosis for this admission?: Yes Plan: Patient has evidence of prosthetic left hip dislocation. Unfortunately while at [facility] it is unknown how long it has been dislocated. Initial radiographs were obtained yesterday due to patient's limb length inequality and inability ambulate. Unfortunately given the unknown chronicity of patient's hip dislocation and the inability to close reduced in the emergency room I am concerned patient may require open reduction with possible revision total hip arthroplasty. Given the fact patient will require complicated procedure from a orthopedic surgeon who regularly performs adult reconstruction including total hip arthroplasty patient will be transferred to [facility] for definitive treatment.
[2019-04-13] MEDS ORDERED: DOXYCYCLINE HYCLATE INJ 100 MG VIAL IV ONE (20:46)
[2019-04-13] MEDS ORDERED: DOXYCYCLINE HYCLATE 100 MG TABLET PO ONE (20:57)
[2019-04-13 21:25] VITALS: BP 141/70
[2019-04-14] MEDS ORDERED: ENOXAPARIN SODIUM INJ 30 MG/0.3 ML DISP.SYRIN SUBCUT SCH (10:00)
== END 2019-04-13 21:39 | disposition short-term general hospital (02) | DRG 561 ==
LOC: ER 15:02 → EH 19:13 → ER 21:39
PROVIDERS: ADMIT Orthopaedic Surgery; ATTEND Orthopaedic Surgery
PROC: 0SWBXJZ Revision of Synthetic Substitute in Left Hip Joint, External Approach (ICD-10-PCS; principal; 2019-04-13)
DX: T84.021A Dislocation of internal left hip prosthesis, initial encounter (principal); I10 Essential (primary) hypertension; Z96.642 Presence of left artificial hip joint; R05 Cough; Z79.82 Long term (current) use of aspirin; Z87.891 Personal history of nicotine dependence; Z88.8 Allergy status to other drugs, medicaments and biological substances
CPT/HCPCS: 36415; 71045; 72170; 80053; 85025; 85610; 85652; 85730; 86140; 86850; 86900; 86901; 96361; 96374; 99285; 99152; J2405; J2704; J7030